=== PATIENT | female | born 1930 | race Caucasian/White ===

== ENCOUNTER 2016-06-23 08:17 | Inpatient (IN) | payer MEDICARE, OTHER ==
--- NOTE | 2016-06-23 10:19 | ER Document Report ---
ED GI Bleed / Rectal Pain - General Mode of Arrival: Medic Information source: Patient TRAVEL OUTSIDE OF THE [place] IN LAST 30 DAYS: No - HPI Patient complains to provider of: Bright red bld from rect. Onset: This morning Timing/Duration: Sudden, Better Quality of pain: No pain Rectal bleeding: Blood mixed w/ stool <KEY MOY - Last Filed: 06/23/16 11:07> <CATHY RAMAN - Last Filed: 06/23/16 11:48> - General Chief Complaint: Bloody Stools Stated Complaint: POSSIBLE GI BLEED Notes: Patient is an 85-year-old female presenting to the emergency department concerned of rectal bleeding onset this morning after her breakfast. Patient states that she was on her way to the restroom and experienced fecal incontinence, and found stool and blood in her underwear. Patient denies any pain, nausea, vomiting, or diarrhea. Patient describes the blood as bright red. Patient states that she takes one baby aspirin, but does not take any other blood thinners. (KEY MOY) - Related Data Allergies/Adverse Reactions: No Known Allergies Allergy (Verified 10/12/13 15:11) Home Medications: Current Home Medications Albuterol Sulfate [Albuterol Sulfate 2.5mg/3 mL] 1 vial IH RTTID 06/23/16 [ History] Alprazolam 0.125 mg PO QHS 06/23/16 [History] Aspirin [Aspirin EC] 81 mg PO DAILY 06/23/16 [History] Atorvastatin Calcium [Lipitor 20 mg Tablet] 20 mg PO QPM 06/23/16 [History] Cholecalciferol (Vitamin D3) [Vitamin D3 2000 unit Tablet] 2,000 unit PO DAILY 06/23/16 [History] Furosemide [Lasix] 20 mg PO DAILY 06/23/16 [History] Methotrexate Sodium [Trexall] 7.5 mg PO MO@1000 06/23/16 [History] Metoprolol Succinate [Toprol Xl] 25 mg PO DAILY 06/23/16 [History] Past Medical History - General Information source: Patient, Parent - Social History Smoking Status: Former Smoker Lives with: Family Family History: Reviewed & Not Pertinent - Past Medical History Cardiac Medical History: Reports: Hx Coronary Artery Disease, Hx Heart Attack, Hx Hypercholesterolemia Pulmonary Medical History: Reports: Hx COPD, Hx Pneumonia - A CHILD Malignancy Medical History: Reports: Hx Lung Cancer Musculoskeltal Medical History: Reports Hx Arthritis Psychiatric Medical History: Reports: Hx Anxiety Past Surgical History: Reports: Hx Hysterectomy - Immunizations Hx Diphtheria, Pertussis, Tetanus Vaccination: Yes <KEY MOY - Last Filed: 06/23/16 11:07> Review of Systems - Review of Systems Constitutional: No symptoms reported EENT: No symptoms reported Cardiovascular: No symptoms reported Respiratory: No symptoms reported Gastrointestinal: See HPI, Blood streaked bowels, Rectal bleeding, Fecal incontinence Genitourinary: No symptoms reported Female Genitourinary: No symptoms reported Musculoskeletal: No symptoms reported Skin: No symptoms reported Hematologic/Lymphatic: No symptoms reported Neurological/Psychological: No symptoms reported <NENITA MOYICA - Last Filed: 06/23/16 11:07> Physical Exam <NENITA MOYICA - Last Filed: 06/23/16 11:07> <CATHY RAMAN - Last Filed: 06/23/16 11:48> - Vital signs Vitals: Resp Pulse Ox 19 100 06/23/16 08:38 06/23/16 08:38 - Notes Notes: GENERAL: VS as per nursing doc. frail appearing female, pleasant and in no acute distress. HEAD: Atraumatic, normocephalic. EYES: Some opacification to the medial left eye, extraocular movements intact, sclera anicteric, no conjunctival injection or discharge. ENT: Nares patent, oropharynx clear without exudates, moist mucous membranes. NECK: Supple without lymphadenopathy. LUNGS: Breath sounds are decreased bilaterally. HEART: Regular rate and rhythm without murmurs. ABDOMEN: Soft, non-tender, normoactive bowel sounds. No guarding, no rebound. No masses appreciated. No [place] sign. Rectal exam shows no active bleeding on inspection. No external hemorrhoids or fissures noted. Digital exam shows no mass that there is some dark maroon blood noted on the glove. No significant tenderness noted. BACK: No CVA tenderness. Severely kyphotic EXTREMITIES: Normal range of motion,no edema. NEUROLOGICAL: Normal speech. Normal sensory and motor exams. No gross cerebellar abnormalities. PSYCH: Normal mood, normal affect. SKIN: Warm, dry, normal turgor, no lesions noted. (CATHY RAMAN) Course - Laboratory Result Diagrams: 06/23/16 08:45 06/23/16 08:45 - Consults Dr. Margaux Gill Time consulted: 11:02 Consulted provider: will see as inpatient Dr. Luz Marina Munoz Time consulted: 11:04 <KEY MOY - Last Filed: 06/23/16 11:07> - Laboratory Result Diagrams: 06/23/16 08:45 06/23/16 08:45 <CATHY RAMAN - Last Filed: 06/23/16 11:48> - Vital Signs Vital signs: Temp Pulse Resp BP Pulse Ox 98.4 F 95 23 H 109/72 100 06/23/16 09:06 06/23/16 09:06 06/23/16 11:00 06/23/16 11:00 06/23/16 11:01 - Laboratory Laboratory results interpreted by me: 06/23/16 06/23/16 06/23/16 08:45 08:45 08:45 RBC 2.82 L Hgb 9.1 L Hct 27.4 L RDW 16.5 H Seg Neutrophils % 84.7 H Lymphocytes % 5.6 L Absolute Lymphocytes 0.4 L PT 16.1 H Sodium 145.1 H Carbon Dioxide 32 H BUN 23 H Glucose 168 H - Consults Dr. Luz Marina Munoz Reason for consultation: 06/23/16 11:09 Discussed patient's case with Dr. Mcdonnell, who agrees to scope the patient if necessary. (KEY MOY) Discharge <KEY MOY - Last Filed: 06/23/16 11:07> - Discharge Admitting Provider: Hospitalist - Dr. Gill Unit Admitted: Telemetry <CATHY RAMAN - Last Filed: 06/23/16 11:48> - Discharge Clinical Impression: Lower GI bleed Condition: Fair Disposition: ADMITTED OBSERVATION Referrals: BRANDIN DU MD [Primary Care Provider] - Follow up as needed Scribe Attestation: 06/23/16 11:48 I personally performed the services described in the documentation, reviewed and edited the documentation which was dictated to the scribe in my presence, and it accurately records my words and actions. (CATHY RAMAN) Scribe Documentation - Scribe Written by Scribe:: Key Moy 06/23/2016 1016 acting as scribe for :: Baldev <KEY MOY - Last Filed: 06/23/16 11:07>
[2016-06-23 10:35] LABS: ABSOLUTE EOSINOPHILS # (AUTO) 0.1 10^3/uL (0.0-0.6); ABSOLUTE LYMPHOCYTES (AUTO) 0.4 10^3/uL (0.5-4.7); ABSOLUTE MONOCYTES (AUTO) 0.5 10^3/uL (0.1-1.4); ABSOLUTE NEUT (AUTO) 5.5 10^3/uL (1.7-8.2); BASOPHILS % (AUTO) 0.8 % (0-2); EOSINOPHILS % (AUTO) 1.3 % (0-6); HEMATOCRIT 27.4 % (36.0-47.0); HEMOGLOBIN 9.1 g/dL (12.0-15.5); HGB HCT DIFFERENCE -0.1; LYMPHOCYTES % (AUTO) 5.6 % (13-45); MEAN CORPUSCULAR HEMOGLOBIN 32.1 pg (27.0-33.4); MEAN CORPUSCULAR VOLUME 97 fl (80-97); MONOCYTES % (AUTO) 7.6 % (3-13); RED BLOOD COUNT 2.82 10^6/uL (3.72-5.28); RED CELL DISTRIBUTION WIDTH 16.5 % (11.5-14.0); SEGMENTED NEUTROPHILS % (AUTO) 84.7 % (42-78); WHITE BLOOD COUNT 6.4 10^3/uL (4.0-10.5)
[2016-06-23 10:36] LABS: PROTHROMBIN TIME 16.1 SEC (11.4-15.4)
[2016-06-23 10:37] LABS: ALANINE AMINOTRANSFERASE 34 U/L (9-52); ALBUMIN 3.8 g/dL (3.5-5.0); ALKALINE PHOSPHATASE 60 U/L (38-126); ANION GAP 14 (5-19); ASPARTATE AMINO TRANSFERASE 30 U/L (14-36); BILIRUBIN,DIRECT 0.2 mg/dL (0.0-0.4); BILIRUBIN,TOTAL 0.5 mg/dL (0.2-1.3); BLOOD UREA NITROGEN 23 mg/dL (7-20); CALCIUM 9.2 mg/dL (8.4-10.2); CARBON DIOXIDE 32 mmol/L (22-30); CHLORIDE 99 mmol/L (98-107); CREATININE RESULT 0.73 mg/dL (0.52-1.25); GLUCOSE 168 mg/dL (75-110); PARTIAL THROMBOPLASTIN TIME 32.1 SEC (23.5-35.8); POTASSIUM 4.6 mmol/L (3.6-5.0); SODIUM 145.1 mmol/L (137-145); TOTAL PROTEIN 6.4 g/dL (6.3-8.2)
[2016-06-23] MEDS ORDERED: ONDANSETRON HCL INJ/PF 4 MG/2 ML SDV IV PRN ×2 (11:22→16:58)
[2016-06-23] MEDS ORDERED: MAG HYDROX/AL HYDROX/SIMETH SUSP 30 ML UDCUP PO PRN (11:22)
[2016-06-23] MEDS ORDERED: ACETAMINOPHEN 325 MG TABLET PO PRN (11:22)
[2016-06-23] MEDS: 1/2 NORMAL SALINE 1,000 ML IV PRN ×2 (11:52→21:46)
[2016-06-23] MEDS ORDERED: SUCRALFATE 1 GM TABLET PO SCH (12:00)
--- NOTE | 2016-06-23 13:11 | PDOC H&P ---
History of Present Illness Admission Date/PCP: 06/23/16 11:48 BRANDIN DU MD Patient complains of: Bleeding per rectum History of Present Illness: SACHI GREENE is a 85 year old female who presents to [facility] emergency room this morning, after experiencing acute onset rectal bleeding after eating breakfast. Patient states she was on her way to the restroom when she experienced fecal incontinence. She found stool and bright red blood in her underwear. She's had no prior episodes of bleeding. She has had none since this time. She does admit to recent problems with constipation, requiring disimpaction. She's never had a colonoscopy, and never wants to have one. We did discuss the possibility of the need for when she she continued to have rectal bleeding. She is agreeable to this as long as systolic in the hospital setting. She states her only caregiver is her son who lives with her. She denies any nausea, vomiting, or abdominal pain. She does have a history of COPD on home oxygen. Past Medical History Cardiac Medical History: Reports: Coronary Artery Disease, Myocardial Infarction , Hyperlipidema Denies: Hypertension Pulmonary Medical History: Reports: Chronic Obstructive Pulmonary Disease (COPD) , Pneumonia - A CHILD, Other - questionable lung cancer treated with XRT, and chemotherapy Denies: Asthma, Bronchitis EENT Medical History: Reports: None Neurological Medical History: Reports: None Denies: Seizures Endocrine Medical History: Reports: None Renal/ Medical History: Reports: None Malignancy Medical History: Reports: Lung Cancer GI Medical History: Reports: None Denies: Hiatal Hernia Musculoskeltal Medical History: Reports: Arthritis Skin Medical History: Reports: None Psychiatric Medical History: Reports: None Denies: Depression Traumatic Medical History: Reports: None Hematology: Reports: None Denies: Anemia, Sickle Cell Disease Infectious Medical History: Reports: None Past Surgical History Past Surgical History: Reports: Hysterectomy Denies: Amputation, Mastectomy Social History Information Source: Patient Lives with: Family Smoking Status: Former Smoker Number of Years Smokin Last Time Smoked: 25 years ago Frequency of Alcohol Use: None Hx Recreational Drug Use: No Drugs: None Hx Prescription Drug Abuse: No - Advance Directive Surrogate healthcare decision maker:: Patient has 3 sons, her son Tony is her MPOA. She has a living will. She does not want resuscitation if she has an irreversible process that she can not recover from Family History Family History: COPD, Hypertension Parental Family History Reviewed: Yes Children Family History Reviewed: Yes Sibling(s) Family History Reviewed.: Yes Medication/Allergy Home Medications: Albuterol Sulfate [Albuterol Sulfate 2.5mg/3 mL] 1 vial IH RTTID 06/23/16 Alprazolam 0.125 mg PO QHS 06/23/16 Aspirin [Aspirin EC] 81 mg PO DAILY 06/23/16 Atorvastatin Calcium [Lipitor 20 mg Tablet] 20 mg PO QPM 06/23/16 Cholecalciferol (Vitamin D3) [Vitamin D3 2000 unit Tablet] 2,000 unit PO DAILY 06/23/16 Furosemide [Lasix] 20 mg PO DAILY 06/23/16 Methotrexate Sodium [Trexall] 7.5 mg PO MO@1000 06/23/16 Metoprolol Succinate [Toprol Xl] 25 mg PO DAILY 06/23/16 Allergies/Adverse Reactions: No Known Allergies Allergy (Verified 10/12/13 15:11) Review of Systems Constitutional: PRESENT: weight loss Eyes: ABSENT: visual disturbances Ears: ABSENT: hearing changes Cardiovascular: ABSENT: chest pain, dyspnea on exertion, edema, orthropnea, palpitations Respiratory: ABSENT: cough, hemoptysis Gastrointestinal: PRESENT: constipation - rectal bleeding x 1, other Genitourinary: ABSENT: dysuria, hematuria Musculoskeletal: ABSENT: joint swelling Integumentary: ABSENT: rash, wounds Neurological: ABSENT: abnormal gait, abnormal speech, confusion, dizziness, focal weakness, syncope Psychiatric: ABSENT: anxiety, depression, homidical ideation, suicidal ideation Endocrine: ABSENT: cold intolerance, heat intolerance, polydipsia, polyuria Hematologic/Lymphatic: ABSENT: easy bleeding, easy bruising Physical Exam Vital Signs: Temp Pulse Resp BP Pulse Ox 98.4 F 95 23 H 109/72 100 06/23/16 09:06 06/23/16 09:06 06/23/16 11:00 06/23/16 11:00 06/23/16 11:01 General appearance: PRESENT: no acute distress, thin, well-developed Head exam: PRESENT: atraumatic, normocephalic Eye exam: PRESENT: conjunctiva pink, EOMI, PERRLA. ABSENT: scleral icterus Ear exam: PRESENT: normal external ear exam Mouth exam: PRESENT: moist, tongue midline Neck exam: ABSENT: carotid bruit, JVD, lymphadenopathy, thyromegaly Respiratory exam: PRESENT: clear to auscultation jerry. ABSENT: rales, rhonchi, wheezes Cardiovascular exam: PRESENT: RRR. ABSENT: diastolic murmur, rubs, systolic murmur Pulses: PRESENT: normal dorsalis pedis pul Vascular exam: PRESENT: normal capillary refill GI/Abdominal exam: PRESENT: normal bowel sounds, soft. ABSENT: distended, guarding, mass, organolmegaly, rebound, tenderness Rectal exam: PRESENT: deferred Extremities exam: PRESENT: full ROM. ABSENT: calf tenderness, clubbing, pedal edema Neurological exam: PRESENT: alert, awake, oriented to person, oriented to place , oriented to time, oriented to situation, CN II-XII grossly intact. ABSENT: motor sensory deficit Psychiatric exam: PRESENT: appropriate affect, normal mood. ABSENT: homicidal ideation, suicidal ideation Skin exam: PRESENT: dry, intact, warm. ABSENT: cyanosis, rash Assessment & Plan - Diagnosis (1) Lower GI bleed Is this a current diagnosis for this admission?: YesPlan: Patient had one episode of tamia rectal bleeding, none since then. Rectal exam showed maroon stool. Dr De Paz spoke with surgialist in consult. He said he would scope patient if she needs to be scoped if recurrent bleed. Likely etiology of bleeding is rectal fissure from constipation, or diverticular bleed. Patient has never had a colonoscopy. She did have a cologard test by her PCP which she reports is negative (2) Anemia Qualifiers: Anemia type: unspecified type Qualified Code(s): D64.9 - Anemia, unspecified Is this a current diagnosis for this admission?: YesPlan: Patient's hemoglobin last admission 9.5mg, presently 9.1. Will monitor serial CBCs (3) COPD (chronic obstructive pulmonary disease) Qualifiers: COPD type: chronic bronchitis Is this a current diagnosis for this admission?: YesPlan: Patient wears oxygen 2l/min via nasal cannula (4) History of malignant neoplasm of lung Is this a current diagnosis for this admission?: YesPlan: Patient never had chemo and XRT for left upper lobe lesion in 2009 (5) Essential (primary) hypertension Is this a current diagnosis for this admission?: YesPlan: Patient is presently normotensive on current medication - Time Time Spent: 50 to 70 Minutes Critical Time spent with patient: 25-34 minutes Medications reviewed and adjusted accordingly: Yes Anticipated discharge: Home with Homehealth
[2016-06-23] MEDS ORDERED: GLUCAGON,HUMAN RECOMB 1 MG INJ SUBCUT PRN (13:17)
[2016-06-23] MEDS ORDERED: DEXTROSE 40% GEL 15 GM TUBE PO PRN ×2 (13:17)
[2016-06-23] MEDS ORDERED: DEXTROSE 50%-WATER 25 GM/50 ML DISP.SYRIN IV PRN ×2 (13:17)
--- NOTE | 2016-06-23 13:32 | PDOC CONSULTATION ---
Consultation Consult Date: 06/23/16 Consult reason:: GI BLEEDING History of Present Illness Admission Date/PCP: 06/23/16 11:48 BRANDIN DU MD Past Medical History Cardiac Medical History: Reports: Coronary Artery Disease, Myocardial Infarction , Hyperlipidema Denies: Hypertension Pulmonary Medical History: Reports: Chronic Obstructive Pulmonary Disease (COPD) , Pneumonia - A CHILD, Other - questionable lung cancer treated with XRT, and chemotherapy Denies: Asthma, Bronchitis EENT Medical History: Reports: None Neurological Medical History: Reports: None Denies: Seizures Endocrine Medical History: Reports: None Renal/ Medical History: Reports: None Malignancy Medical History: Reports: Lung Cancer GI Medical History: Reports: None Denies: Hiatal Hernia Musculoskeltal Medical History: Reports: Arthritis Skin Medical History: Reports: None Psychiatric Medical History: Reports: None Denies: Depression Traumatic Medical History: Reports: None Hematology: Reports: None Denies: Anemia, Sickle Cell Disease Infectious Medical History: Reports: None Past Surgical History Past Surgical History: Reports: Hysterectomy Denies: Amputation, Mastectomy Social History Lives with: Family Smoking Status: Former Smoker Number of Years Smokin Last Time Smoked: 25 years ago Frequency of Alcohol Use: None Hx Recreational Drug Use: No Drugs: None Hx Prescription Drug Abuse: No Family History Family History: COPD, Hypertension Medication/Allergy Home Medications: Albuterol Sulfate [Albuterol Sulfate 2.5mg/3 mL] 1 vial IH RTTID 06/23/16 Alprazolam 0.125 mg PO QHS 06/23/16 Aspirin [Aspirin EC] 81 mg PO DAILY 06/23/16 Atorvastatin Calcium [Lipitor 20 mg Tablet] 20 mg PO QPM 06/23/16 Cholecalciferol (Vitamin D3) [Vitamin D3 2000 unit Tablet] 2,000 unit PO DAILY 06/23/16 Furosemide [Lasix] 20 mg PO DAILY 06/23/16 Methotrexate Sodium [Trexall] 7.5 mg PO MO@1000 06/23/16 Metoprolol Succinate [Toprol Xl] 25 mg PO DAILY 06/23/16 Allergies/Adverse Reactions: No Known Allergies Allergy (Verified 10/12/13 15:11) Physical Exam Vital Signs: Temp Pulse Resp BP Pulse Ox 98.3 F 95 25 H 100/51 L 100 06/23/16 12:21 06/23/16 09:06 06/23/16 13:01 06/23/16 13:00 06/23/16 13:01 Assessment & Plan - Diagnosis (1) Lower GI bleed Is this a current diagnosis for this admission?: Yes (2) Anemia Qualifiers: Anemia type: unspecified type Qualified Code(s): D64.9 - Anemia, unspecified Is this a current diagnosis for this admission?: Yes - Plan Summary Plan Summary: pLAN UPPER ENDOSCOPY TODAY BOWEL PREP THIS EVENING AND COLONOSCOPY TOMORROW
[2016-06-23] MEDS: ALBUTEROL SULFATE 0.083% NEB 2.5 MG/3 ML AMPUL NEB SCH ×2 (13:46→20:11)
[2016-06-23] MEDS ORDERED: PHENYLEPHRINE HCL INJ/PF 10 MG/1 ML SDV ONE (15:29)
[2016-06-23] MEDS ORDERED: LIDOCAINE 2% INJ-PF (20 MG/ML) 10 ML AMPUL ONE (15:29)
[2016-06-23] MEDS ORDERED: ONDANSETRON HCL INJ/PF 4 MG/2 ML SDV ONE (15:29)
[2016-06-23] MEDS ORDERED: PROPOFOL INJ 200 MG/20 ML VIAL IV ONE (15:53)
[2016-06-23] MEDS ORDERED: DEXMEDETOMIDINE INJ 80 MCG/20 ML VIAL IV ONE (15:53)
[2016-06-23] MEDS ORDERED: EPHEDRINE SULFATE INJ 50 MG/1 ML AMPULE ONE (15:55)
[2016-06-23] MEDS ORDERED: DIPHENHYDRAMINE HCL 50 MG/ML VIAL IV PRN (16:58)
[2016-06-23] MEDS ORDERED: PROMETHAZINE HCL INJ 25 MG/1 ML VIAL IV PRN (16:58)
--- NOTE | 2016-06-23 17:23 | OPERATIVE REPORT E ---
Operative Report NAME: SACHI GREENE : 1930 AGE: 85Y DATE OF SURGERY: 06/23/2016 ROOM: ED18 PREOPERATIVE DIAGNOSIS: GI bleeding. POSTOPERATIVE DIAGNOSIS: GI bleeding with no source of upper GI bleeding visible. OPERATIVE PROCEDURE: Esophagogastroduodenoscopy. SURGEON: CASSI POMPA M.D. ANESTHESIA: Monitored anesthesia care. BLOOD LOSS: None. SPECIMENS: None. HISTORY AND INDICATIONS: As described, the patient was admitted through the emergency room with a large amount of GI bleeding, maroon-colored bleeding. Hemoglobin went down to 7.5, and she needed to have both an upper and lower endoscopy for evaluation. DESCRIPTION OF PROCEDURE: The patient was placed in the left lateral position, under monitored anesthesia care, EGD scope was passed through oropharynx and advanced to the level of the third and fourth part of the duodenum. The entire esophagus, stomach, and duodenum examined. FINDINGS: She has a large hiatal hernia. Esophagus otherwise normal. In the stomach, most of the stomach appeared normal except for a large hiatal hernia on retroflexion was seen, but no stomach ulcerations and no gastritis was seen. Duodenum also completely normal. Overall, upper endoscopy revealed no GI bleeding source. PLAN: clear-liquid diet tonight. Will give her bowel prep tonight. Will do a colonoscopy tomorrow. DICTATING PHYSICIAN: CASSI POMPA M.D. [id number] PHY#: [id number] ID: [id number] JOB#: [id number] ACCT: [id number] cc:CASSI POMPA M.D. > [facility]
[2016-06-23] MEDS ORDERED: PEG 3350/NA SULF,BICARB,CL/KCL 4000 ML PO ONE (18:00)
[2016-06-23 19:22] LABS: ABSOLUTE BASOPHILS # (AUTO) 0.1 10^3/uL (0.0-0.2); ABSOLUTE EOSINOPHILS # (AUTO) 0.1 10^3/uL (0.0-0.6); ABSOLUTE LYMPHOCYTES (AUTO) 0.7 10^3/uL (0.5-4.7); ABSOLUTE MONOCYTES (AUTO) 0.6 10^3/uL (0.1-1.4); ABSOLUTE NEUT (AUTO) 4.4 10^3/uL (1.7-8.2); HEMATOCRIT 26.5 % (36.0-47.0); HEMOGLOBIN 8.7 g/dL (12.0-15.5); HGB HCT DIFFERENCE -0.4; LYMPHOCYTES % (AUTO) 11.7 % (13-45); MEAN CORPUSCULAR HEMOGLOBIN 31.6 pg (27.0-33.4); MEAN CORPUSCULAR VOLUME 96 fl (80-97); MONOCYTES % (AUTO) 9.7 % (3-13); RED BLOOD COUNT 2.76 10^6/uL (3.72-5.28); RED CELL DISTRIBUTION WIDTH 16.4 % (11.5-14.0); SEGMENTED NEUTROPHILS % (AUTO) 75.6 % (42-78); WHITE BLOOD COUNT 5.8 10^3/uL (4.0-10.5)
[2016-06-23] MEDS: ATORVASTATIN CALCIUM 20 MG TABLET PO SCH (20:42)
[2016-06-23] MEDS: SUCRALFATE SUSP 1 GM/10 ML UDCUP PO SCH (20:42)
[2016-06-23] MEDS: ALPRAZOLAM 0.25 MG TABLET PO SCH (21:41)
[2016-06-23] MEDS: PANTOPRAZOLE SODIUM 40 MG VIAL IV SCH (21:46)
[2016-06-24 03:22] LABS: ABSOLUTE EOSINOPHILS # (AUTO) 0.1 10^3/uL (0.0-0.6); ABSOLUTE LYMPHOCYTES (AUTO) 0.4 10^3/uL (0.5-4.7); ABSOLUTE MONOCYTES (AUTO) 0.5 10^3/uL (0.1-1.4); ABSOLUTE NEUT (AUTO) 4.1 10^3/uL (1.7-8.2); EOSINOPHILS % (AUTO) 1.3 % (0-6); HEMATOCRIT 24.4 % (36.0-47.0); HEMOGLOBIN 8.1 g/dL (12.0-15.5); HGB HCT DIFFERENCE -0.1; LYMPHOCYTES % (AUTO) 7.3 % (13-45); MEAN CORPUSCULAR HEMOGLOBIN 31.8 pg (27.0-33.4); MEAN CORPUSCULAR HGB CONC 33.2 g/dL (32.0-36.0); MEAN CORPUSCULAR VOLUME 96 fl (80-97); MONOCYTES % (AUTO) 9.4 % (3-13); RED BLOOD COUNT 2.55 10^6/uL (3.72-5.28); RED CELL DISTRIBUTION WIDTH 16.3 % (11.5-14.0)
[2016-06-24 03:30] LABS: ALANINE AMINOTRANSFERASE 32 U/L (9-52); ALBUMIN 3.4 g/dL (3.5-5.0); ALKALINE PHOSPHATASE 64 U/L (38-126); ANION GAP 12 (5-19); ASPARTATE AMINO TRANSFERASE 27 U/L (14-36); BILIRUBIN,DIRECT 0.2 mg/dL (0.0-0.4); BILIRUBIN,TOTAL 0.6 mg/dL (0.2-1.3); BLOOD UREA NITROGEN 19 mg/dL (7-20); CALCIUM 8.6 mg/dL (8.4-10.2); CARBON DIOXIDE 30 mmol/L (22-30); CHLORIDE 100 mmol/L (98-107); CREATININE RESULT 0.69 mg/dL (0.52-1.25); GLUCOSE 111 mg/dL (75-110); POTASSIUM 4.2 mmol/L (3.6-5.0); SODIUM 142.2 mmol/L (137-145); TOTAL PROTEIN 5.7 g/dL (6.3-8.2)
[2016-06-24] MEDS: ALBUTEROL SULFATE 0.083% NEB 2.5 MG/3 ML AMPUL NEB SCH ×3 (07:56→19:33)
[2016-06-24] MEDS ORDERED: PROPOFOL INJ 200 MG/20 ML VIAL IV ONE (10:28)
[2016-06-24] MEDS ORDERED: MIDAZOLAM 2 MG/2 ML INJ ONE (10:28)
[2016-06-24] MEDS ORDERED: LIDOCAINE 2% INJ-PF (20 MG/ML) 10 ML AMPUL ONE (10:28)
[2016-06-24] MEDS ORDERED: DEXMEDETOMIDINE INJ 80 MCG/20 ML VIAL IV ONE (10:28)
[2016-06-24] MEDS: METOPROLOL SUCCINATE 25 MG TAB.SR.24H PO SCH ×2 (11:34→15:14)
[2016-06-24] MEDS: PANTOPRAZOLE SODIUM 40 MG VIAL IV SCH ×2 (11:34→21:30)
[2016-06-24] MEDS: SUCRALFATE SUSP 1 GM/10 ML UDCUP PO SCH ×2 (11:34→17:26)
[2016-06-24] MEDS ORDERED: ONDANSETRON HCL INJ/PF 4 MG/2 ML SDV IV PRN (11:55)
[2016-06-24] MEDS ORDERED: FLUMAZENIL INJ 0.5 MG/5 ML VIAL IV ONE (13:44)
--- NOTE | 2016-06-24 14:05 | PDOC PROGRESS REPORT ---
Subjective Progress Note for:: 06/24/16 Physical Exam Vital Signs: Temp Pulse Resp BP Pulse Ox 97.4 F 89 16 88/37 L 100 06/24/16 13:10 06/24/16 13:10 06/24/16 13:10 06/24/16 13:10 06/24/16 13:10 Intake & Output 06/23/16 06/24/16 06/25/16 06:59 06:59 06:59 Intake Total 1909 1360 Balance 1909 1360 Weight 42.8 kg Results Laboratory Results: 06/24/16 03:11 06/24/16 03:11 06/23/16 06/24/16 06/24/16 19:10 03:11 03:11 WBC 5.8 5.0 RBC 2.76 L 2.55 L Hgb 8.7 L 8.1 L Hct 26.5 L 24.4 L MCV 96 96 MCH 31.6 31.8 MCHC 33.0 33.2 RDW 16.4 H 16.3 H Plt Count 156 109 L Seg Neutrophils % 75.6 81.0 H Lymphocytes % 11.7 L 7.3 L Monocytes % 9.7 9.4 Eosinophils % 2.0 1.3 Basophils % 1.0 1.0 Absolute Neutrophils 4.4 4.1 Absolute Lymphocytes 0.7 0.4 L Absolute Monocytes 0.6 0.5 Absolute Eosinophils 0.1 0.1 Absolute Basophils 0.1 0.0 Sodium 142.2 Potassium 4.2 Chloride 100 Carbon Dioxide 30 Anion Gap 12 BUN 19 Creatinine 0.69 Est GFR ( Amer) > 60 Est GFR (Non-Af Amer) > 60 Glucose 111 H Calcium 8.6 Total Bilirubin 0.6 AST 27 ALT 32 Alkaline Phosphatase 64 Total Protein 5.7 L Albumin 3.4 L Assessment & Plan - Diagnosis (1) Lower GI bleed Is this a current diagnosis for this admission?: Yes (2) Anemia Qualifiers: Anemia type: unspecified type Qualified Code(s): D64.9 - Anemia, unspecified Is this a current diagnosis for this admission?: Yes - Plan Summary Plan Summary: EGD - Large hiatal hernia - conservative management Colonoscopy Mild Ischemic colitis , no active bleeding Diet asd tolerated, hydration Conservative management , no surgery at this time Advance diet as tolerated May DC home tomorrow Follow-up with surgery PRN
[2016-06-24 15:21] LABS: ABSOLUTE EOSINOPHILS # (AUTO) 0.1 10^3/uL (0.0-0.6); ABSOLUTE LYMPHOCYTES (AUTO) 0.6 10^3/uL (0.5-4.7); ABSOLUTE MONOCYTES (AUTO) 0.6 10^3/uL (0.1-1.4); BASOPHILS % (AUTO) 0.6 % (0-2); EOSINOPHILS % (AUTO) 0.7 % (0-6); HEMATOCRIT 26.5 % (36.0-47.0); HEMOGLOBIN 8.8 g/dL (12.0-15.5); HGB HCT DIFFERENCE -0.1; LYMPHOCYTES % (AUTO) 8.1 % (13-45); MEAN CORPUSCULAR HEMOGLOBIN 31.7 pg (27.0-33.4); MEAN CORPUSCULAR VOLUME 96 fl (80-97); MONOCYTES % (AUTO) 8.1 % (3-13); RED BLOOD COUNT 2.76 10^6/uL (3.72-5.28); RED CELL DISTRIBUTION WIDTH 16.9 % (11.5-14.0); SEGMENTED NEUTROPHILS % (AUTO) 82.5 % (42-78); WHITE BLOOD COUNT 7.3 10^3/uL (4.0-10.5)
--- NOTE | 2016-06-24 16:57 | EKG REPORT ---
SEVERITY:- OTHERWISE NORMAL ECG - SINUS RHYTHM BORDERLINE LEFT AXIS DEVIATION : Confirmed by: Carolyn Fofana MD 24-Jun-2016 16:56:54
[2016-06-24] MEDS: ATORVASTATIN CALCIUM 20 MG TABLET PO SCH (17:26)
[2016-06-24] MEDS: METRONIDAZOLE 500 MG/NS RTU 100 ML IV SCH (17:28)
[2016-06-24] MEDS: ALPRAZOLAM 0.25 MG TABLET PO SCH (21:30)
[2016-06-24] MEDS: 1/2 NORMAL SALINE 1,000 ML IV PRN (21:36)
[2016-06-25] MEDS ORDERED: IPRATROPIUM/ALBUTEROL 0.5-2.5 MG/3 ML AMPUL NEB PRN (00:53)
[2016-06-25] MEDS: METRONIDAZOLE 500 MG/NS RTU 100 ML IV SCH ×2 (02:19→09:24)
[2016-06-25] MEDS: ALBUTEROL SULFATE 0.083% NEB 2.5 MG/3 ML AMPUL NEB SCH (07:56)
[2016-06-25] MEDS: PANTOPRAZOLE SODIUM 40 MG VIAL IV SCH (09:24)
[2016-06-25] MEDS: SUCRALFATE SUSP 1 GM/10 ML UDCUP PO SCH (09:25)
[2016-06-25] MEDS: METOPROLOL SUCCINATE 25 MG TAB.SR.24H PO SCH (09:26)
[2016-06-25] MEDS ORDERED: ALPRAZOLAM 0.25 MG TABLET PO ONE (10:30)
[2016-06-25 12:23] VITALS: BP 121/58
--- NOTE | 2016-06-25 13:52 | OPERATIVE REPORT E ---
Operative Report NAME: SACHI GREENE : 1930 AGE: 85Y DATE OF SURGERY: 06/24/2016 ROOM: 530 PREOPERATIVE DIAGNOSIS: Gastrointestinal bleeding, most likely lower GI bleeding. POSTOPERATIVE DIAGNOSES: She has ischemic colitis, and in the junction between the proximal descending colon and upper sigmoid colon, there is a stricture, not passable. It could be an extensive stricture, possible , but could not negotiate that and time. OPERATIVE PROCEDURE: Colonoscopy of the left colon, up to the descending colon, incomplete because of possible stricture and extensive amount of adhesions and fear of perforation because of ischemic colitis, had to do an incomplete colonoscopy, but no active bleeding. SURGEON: CASSI POMPA M.D. ANESTHESIA: Monitored anesthesia care. BLOOD LOSS: None. SPECIMENS: None. HISTORY AND INDICATIONS: The patient was admitted through the emergency room with GI bleeding. Upper GI endoscopy was negative and now we need to do a colonoscopy. DESCRIPTION OF PROCEDURE: The patient was placed in the left lateral position. Digital rectal examination: No palpable masses. Then a colonoscope was introduced through the anal canal, advanced slowly and then the scope was up to 67 cm, more than likely it was in the proximal ascending colon. At that level, there was an impassible stricture, acute bend, and I could not pass the scope safely through that acutely bent colonic area, but there was no malignant lesions. No polyps. Most of the sigmoid colon and distal ascending colon appeared to be having signs of ischemic colitis with punctate hemorrhages, slight discoloration, but no evidence of any gangrene or anything like that. Then colonoscope withdrawn and the colon was decompressed at the same time. The patient recovered without any problems. He was taken to the recovery room in good condition. The rest of the management: I will put her on Flagyl for possible ischemic colitis and treat her conservatively as much as possible. The patient is a very frail patient, an 85-year-old, a surgical option is not a good option. She will not tolerate any, so I will transfusions and nutrition optimization as much as possible with conservative management. DICTATING PHYSICIAN: CASSI PMOPA M.D. [id number] PHY#: [id number] ID: [id number] JOB#: [id number] ACCT: [id number] cc:CASSI POMPA M.D. >
--- NOTE | 2016-06-25 17:11 | PDOC DISCHARGE SUMMARY ---
General - Admit/Disc Date/PCP Admission Date/Primary Care Provider: 06/24/16 11:33 BRANDIN DU MD Discharge Date: 06/25/16 - Discharge Diagnosis (1) Lower GI bleed Is this a current diagnosis for this admission?: YesSummary: Patient underwent EGD and colonoscopy. EGD was unremarkable. Colonoscopy showed small area of ischemic colitis with no active bleeding. Patient was started on Flagyl. Had no further rectal bleeding or diarrhea, one normal stool (2) Anemia Is this a current diagnosis for this admission?: YesSummary: She did not require transfusion hemoglobin was stable (3) COPD (chronic obstructive pulmonary disease) Is this a current diagnosis for this admission?: YesSummary: Continue inhalers (4) History of malignant neoplasm of lung Is this a current diagnosis for this admission?: Yes (5) Essential (primary) hypertension Is this a current diagnosis for this admission?: YesSummary: Continue current medications she is normotensive. - Additional Information Resuscitation Status: Do Not Resuscitate Discharge Diet: Regular Discharge Activity: Activity As Tolerated, Balance Activity w/Rest Home Medications: Albuterol Sulfate [Albuterol Sulfate 2.5mg/3 mL] 1 vial IH RTTID 06/23/16 Alprazolam 0.125 mg PO QHS 06/23/16 Aspirin [Aspirin EC] 81 mg PO DAILY 06/23/16 Atorvastatin Calcium [Lipitor 20 mg Tablet] 20 mg PO QPM 06/23/16 Cholecalciferol (Vitamin D3) [Vitamin D3 2000 unit Tablet] 2,000 unit PO DAILY 06/23/16 Furosemide [Lasix] 20 mg PO DAILY 06/23/16 Methotrexate Sodium [Trexall] 7.5 mg PO MO@1000 06/23/16 Metoprolol Succinate [Toprol Xl] 25 mg PO DAILY 06/23/16 Metronidazole [Flagyl 500 mg Tablet] 500 mg PO TID #21 tablet 06/25/16 History of Present Illness Patient complains of: Rectal bleeding History of Present Illness: SACHI GREENE is a 85 year old female who presents to [facility]'s emergency room this morning, after experiencing acute onset rectal bleeding after eating breakfast. Patient states she was on her way to the restroom when she experienced fecal incontinence. She found stool and bright red blood in her underwear. She's had no prior episodes of bleeding. She has had none since this time. She does admit to recent problems with constipation, requiring disimpaction. She's never had a colonoscopy, and never wants to have one. We did discuss the possibility of the need for when she she continued to have rectal bleeding. She is agreeable to this as long as systolic in the hospital setting. She states her only caregiver is her son who lives with her. She denies any nausea, vomiting, or abdominal pain. She does have a history of COPD on home oxygen. Hospital Course Hospital Course: She is in his hospital service on telemetry.Gen. surgery was consulted for EGD and colonoscopy. Dr. Ramirez, saw the patient in consult. He took her from EGD from the emergency room. There is no finding of gastritis or esophagitis no ulcers. She was admitted to telemetry floor for rectal bleeding. She underwent GoLYTELY prep for colonoscopy the following day. Hemoglobin did drop from 9.1-8.1. With prep. She had a colonoscopy which showed a small area of ischemic colitis. She was started on IV Flagyl. She had no active bleeding. She had 1 small bowel movement overnight with no bleeding. She was able tolerate a regular diet. Today she is cleared for discharge Physical Exam Vital Signs: Temp Pulse Resp BP Pulse Ox 97.5 F 94 21 H 121/58 L 100 06/25/16 12:20 06/25/16 12:20 06/25/16 12:20 06/25/16 12:20 06/25/16 12:20 Intake & Output 06/24/16 06/25/16 06/26/16 06:59 06:59 06:59 Intake Total 4037 Balance 4037 Weight 42.7 kg General appearance: PRESENT: no acute distress, thin, well-developed Head exam: PRESENT: atraumatic, normocephalic Eye exam: PRESENT: conjunctival injection Ear exam: PRESENT: normal external ear exam Mouth exam: PRESENT: dry mucosa Neck exam: ABSENT: carotid bruit, JVD, lymphadenopathy, thyromegaly Respiratory exam: PRESENT: decreased breath sounds, symmetrical, unlabored Cardiovascular exam: PRESENT: RRR. ABSENT: diastolic murmur, rubs, systolic murmur Pulses: PRESENT: normal dorsalis pedis pul Vascular exam: PRESENT: normal capillary refill GI/Abdominal exam: PRESENT: normal bowel sounds, soft. ABSENT: distended, guarding, mass, organolmegaly, rebound, tenderness Rectal exam: PRESENT: deferred Extremities exam: PRESENT: full ROM. ABSENT: calf tenderness, clubbing, pedal edema Neurological exam: PRESENT: alert, awake, oriented to person, oriented to place , oriented to time, oriented to situation, CN II-XII grossly intact. ABSENT: motor sensory deficit Psychiatric exam: PRESENT: appropriate affect, normal mood. ABSENT: homicidal ideation, suicidal ideation Skin exam: PRESENT: dry, intact, warm. ABSENT: cyanosis, rash Results Laboratory Results: 06/24/16 15:17 Qualifiers PATEINT BEING DISCHARGED WITH ANY OF THE FOLLOWING DIAGNOSIS?: No Plan Discharge Plan: Home with family Time Spent: Less than 30 Minutes
== END 2016-06-25 13:18 | disposition home or self-care (01) | DRG 378 ==
LOC: ER 08:17 → EH 11:22 → UNDOADMOB 11:48 → 5 18:16 → OBSVTOIN 06-24 11:33
PROVIDERS: ADMIT Family Medicine; ATTEND Family Medicine
PROC: 0DJ08ZZ Inspection of Upper Intestinal Tract, Via Natural or Artificial Opening Endoscopic (ICD-10-PCS; principal; 2016-06-23 15:00)
PROC: 0DJD8ZZ Inspection of Lower Intestinal Tract, Via Natural or Artificial Opening Endoscopic (ICD-10-PCS; 2016-06-24)
DX: K92.2 Gastrointestinal hemorrhage, unspecified (principal); K55.9 Vascular disorder of intestine, unspecified; C34.90 Malignant neoplasm of unspecified part of unspecified bronchus or lung; D64.9 Anemia, unspecified; K44.9 Diaphragmatic hernia without obstruction or gangrene; I10 Essential (primary) hypertension; I25.10 Atherosclerotic heart disease of native coronary artery without angina pectoris; E78.5 Hyperlipidemia, unspecified; J44.9 Chronic obstructive pulmonary disease, unspecified; I25.2 Old myocardial infarction; Z99.81 Dependence on supplemental oxygen; Z79.82 Long term (current) use of aspirin; Z79.899 Other long term (current) drug therapy; Z79.51 Long term (current) use of inhaled steroids; Z87.891 Personal history of nicotine dependence
CPT/HCPCS: 36415; 43235; 45378; 740; 80053; 810; 85025; 85610; 85730; 86850; 86900; 86901; 93005; 93010; 94640; 99285; G0378; J2250; J2370; J2405; J2704; J3490; S0164

== ENCOUNTER 2016-07-26 02:29 | Observation (INO) | payer MEDICARE, OTHER ==
[2016-07-26] MEDS ORDERED: NORMAL SALINE 1000 ML 1,000 ML IV ONE (05:13)
--- NOTE | 2016-07-26 06:33 | ER Document Report ---
ED General - General Chief Complaint: Head Injury Stated Complaint: FALL/RIGHT SIDE INJURY Time Seen by Provider: 07/26/16 04:51 Mode of Arrival: Medic Information source: Patient, Emergency Med Personnel TRAVEL OUTSIDE OF THE [place] IN LAST 30 DAYS: No - HPI Notes: See computer downtime charting. - Related Data Allergies/Adverse Reactions: No Known Allergies Allergy (Verified 10/12/13 15:11) Home Medications: Current Home Medications Furosemide [Lasix 20 mg Tablet] 20 mg PO DAILY 07/26/16 [History] Methotrexate Sodium [Methotrexate] 2.5 mg PO OVIEDO@1000 07/26/16 [History] Metoprolol Succinate [Toprol Xl 50 mg Tab.sr] 50 mg PO DAILY 07/26/16 [History] Prednisolone Acetate [Inflamase 1% Oph Susp 5 ml] 1 drop OS DAILY 07/26/16 [ History] Past Medical History - Social History Smoking Status: Never Smoker Frequency of alcohol use: None Drug Abuse: None Lives with: Alone Family History: Reviewed & Not Pertinent, COPD, Hypertension Patient has suicidal ideation: No - Past Medical History Cardiac Medical History: Reports: Hx Coronary Artery Disease, Hx Heart Attack, Hx Hypercholesterolemia Denies: Hx Hypertension Pulmonary Medical History: Reports: Hx COPD, Hx Pneumonia - A CHILD Denies: Hx Asthma, Hx Bronchitis Neurological Medical History: Denies: Hx Seizures Renal/ Medical History: Denies: Hx Peritoneal Dialysis Malignancy Medical History: Reports: Hx Lung Cancer GI Medical History: Denies: Hx Hiatal Hernia, Hx Ulcer Musculoskeltal Medical History: Reports Hx Arthritis Psychiatric Medical History: Reports: Hx Anxiety Denies: Hx Depression Past Surgical History: Reports: Hx Hysterectomy. Denies: Hx Mastectomy, Hx Open Heart Surgery - Immunizations Hx Diphtheria, Pertussis, Tetanus Vaccination: Yes Physical Exam - Vital signs Vitals: Temp Pulse Resp BP Pulse Ox 97.8 F 106 H 18 116/68 95 07/26/16 02:37 07/26/16 02:37 07/26/16 02:37 07/26/16 02:37 07/26/16 02:37 Course - Re-evaluation Re-evalutation: 08/03/16 05:52 see computer downtime chart. - Vital Signs Vital signs: Temp Pulse Resp BP Pulse Ox 97.2 F 113 H 16 122/84 98 07/31/16 15:46 07/31/16 15:46 07/31/16 15:46 07/31/16 15:46 07/31/16 15:46 - Laboratory Result Diagrams: 07/27/16 06:50 07/27/16 06:50 Laboratory results interpreted by me: 07/26/16 07/26/16 07/26/16 06:10 06:10 06:10 WBC 14.3 H RBC 3.59 L Hgb 11.1 L Hct 35.4 L MCV 99 H MCHC 31.4 L RDW 18.4 H Seg Neuts % (Manual) 90 H Lymphocytes % (Manual) 1 L Abs Neuts (Manual) 13.4 H Abs Lymphs (Manual) 0.1 L PT 18.4 H Chloride 95 L Carbon Dioxide 36 H BUN 27 H Glucose 122 H Iron TIBC Direct Bilirubin 0.5 H AST 46 H ALT 58 H Alkaline Phosphatase 196 H NT-Pro-B Natriuret Pep Total Protein 6.1 L Albumin 3.4 L 07/26/16 07/26/16 06:10 06:10 WBC RBC Hgb Hct MCV MCHC RDW Seg Neuts % (Manual) Lymphocytes % (Manual) Abs Neuts (Manual) Abs Lymphs (Manual) PT Chloride Carbon Dioxide BUN Glucose Iron 35.8 L TIBC 216 L Direct Bilirubin AST ALT Alkaline Phosphatase NT-Pro-B Natriuret Pep 1690 H Total Protein Albumin Discharge - Discharge Clinical Impression: Weight loss, Syncope, near Accidental fall Qualifiers: Encounter type: initial encounter Qualified Code(s): W19.XXXA - Unspecified fall, initial encounter Head injury Qualifiers: Encounter type: initial encounter Qualified Code(s): S09.90XA - Unspecified injury of head, initial encounter Metastatic lung carcinoma Qualifiers: Laterality: unspecified laterality Qualified Code(s): C78.00 - Secondary malignant neoplasm of unspecified lung Condition: Serious Disposition: ADMITTED INPATIENT
--- NOTE | 2016-07-26 06:36 | RADIOLOGY REPORT (SQ) ---
EXAM DESCRIPTION: CHEST SINGLE VIEW COMPLETED DATE/TIME: 07/26/2016 6:10 am REASON FOR STUDY: dyspnea COMPARISON: 09/18/2015. CT, 09/19/2015. EXAM PARAMETERS: NUMBER OF VIEWS: One view. TECHNIQUE: Single frontal radiographic view of the chest acquired. RADIATION DOSE: NA LIMITATIONS: None. FINDINGS: LUNGS AND PLEURA: Air opacification of the left lower hemithorax, left mid hemithorax, lef t lateral upper hemithorax, and right hilum. Small left lung volume. Extensive deformity of the lef t bony hemithorax, deformity of the left mid -distal clavicle clavicular shaft, and moderate mixed sc lerosis and lucency of the left glenoid. MEDIASTINUM AND HILAR STRUCTURES: No masses. Contour normal. HEART AND VASCULAR STRUCTURES: Heart normal in size. Normal vasculature. BONES: No acute findings. HARDWARE: At adequate appearing right mini port central line. OTHER: No other significant finding. IMPRESSION: No acute cardiopulmonary findings. Chronic abnormalities of the left hemithorax and rig ht hilum consistent with prior history of malignancy. TECHNICAL DOCUMENTATION: JOB ID: [id number]
[2016-07-26 07:00] LABS: PROTHROMBIN TIME 18.4 SEC (11.4-15.4)
[2016-07-26 07:09] LABS: PARTIAL THROMBOPLASTIN TIME 31.4 SEC (23.5-35.8)
--- NOTE | 2016-07-26 07:13 | ER Document Report ---
ED General - General Chief Complaint: Head Injury Stated Complaint: FALL/RIGHT SIDE INJURY Time Seen by Provider: 07/26/16 04:51 Mode of Arrival: Medic Information source: Patient Notes: 86-year-old female with history of malignancy lung CA presents with complaints of weakness shortness of breath. Patient notes she had fallen and struck her head. Son notes failure to thrive at home weight loss multiple falls TRAVEL OUTSIDE OF THE [place] IN LAST 30 DAYS: No - HPI Onset: Other - 2-3 month duration Onset/Duration: Persistent Quality of pain: No pain Severity: Moderate Pain Level: Denies Associated symptoms: Shortness of breath, Weakness Exacerbated by: Denies Relieved by: Denies Similar symptoms previously: Yes Recently seen / treated by doctor: Yes - Related Data Allergies/Adverse Reactions: No Known Allergies Allergy (Verified 10/12/13 15:11) Home Medications: Current Home Medications Alprazolam [Xanax 0.25 mg Tablet] 0.25 mg PO DAILYP PRN 07/26/16 [History] Furosemide [Lasix 20 mg Tablet] 20 mg PO DAILY 07/26/16 [History] Methotrexate Sodium [Methotrexate] 2.5 mg PO OVIEDO@1000 07/26/16 [History] Metoprolol Succinate [Toprol Xl 50 mg Tab.sr] 50 mg PO DAILY 07/26/16 [History] Prednisolone Acetate [Inflamase 1% Oph Susp 5 ml] 1 drop OS DAILY 07/26/16 [ History] Past Medical History - General Information source: Patient, Emergency Med Personnel - Social History Smoking Status: Never Smoker Cigarette use (# per day): No Chew tobacco use (# tins/day): No Smoking Education Provided: No Family History: COPD, Hypertension Patient has suicidal ideation: No - Past Medical History Cardiac Medical History: Reports: Hx Coronary Artery Disease, Hx Heart Attack, Hx Hypercholesterolemia Denies: Hx Hypertension Pulmonary Medical History: Reports: Hx COPD, Hx Pneumonia - A CHILD Denies: Hx Asthma, Hx Bronchitis Neurological Medical History: Denies: Hx Seizures Renal/ Medical History: Denies: Hx Peritoneal Dialysis Malignancy Medical History: Reports: Hx Lung Cancer GI Medical History: Denies: Hx Hiatal Hernia, Hx Ulcer Musculoskeltal Medical History: Reports Hx Arthritis Psychiatric Medical History: Reports: Hx Anxiety Denies: Hx Depression Past Surgical History: Reports: Hx Hysterectomy. Denies: Hx Mastectomy, Hx Open Heart Surgery - Immunizations Hx Diphtheria, Pertussis, Tetanus Vaccination: Yes Review of Systems - Review of Systems Notes: PHYSICAL EXAMINATION: GENERAL: Thin frail cachectic appearing HEAD: Atraumatic, normocephalic. EYES: Pupils equal round and reactive to light, extraocular movements intact, conjunctiva are normal. ENT: Nares patent, oropharynx clear without exudates. Moist mucous membranes. NECK: Normal range of motion, supple without lymphadenopathy LUNGS: Breath sounds clear to auscultation bilaterally and equal. Breathing 40 times a minute HEART: Regular rate and rhythm without murmurs ABDOMEN: Soft, nontender, nondistended abdomen. No guarding, no rebound. No masses appreciated. Female : deferred Musculoskeletal: Normal range of motion, no pitting or edema. No cyanosis. NEUROLOGICAL: Cranial nerves grossly intact. Normal speech, normal gait. Normal sensory, motor exams PSYCH: Normal mood, normal affect. SKIN: Warm, Dry, normal turgor, no rashes or lesions noted. Physical Exam - Vital signs Vitals: Temp Pulse Resp BP Pulse Ox 97.8 F 106 H 18 116/68 95 07/26/16 02:37 07/26/16 02:37 07/26/16 02:37 07/26/16 02:37 07/26/16 02:37 Course - Re-evaluation Re-evalutation: 07/26/16 07:14 Lab work imaging is pending at this time, I expect admission for this patient 07/26/16 08:[address] Tan will defer on admission at this time until CTA is performed 07/26/16 10:47 CT a is consistent with multiple metastatic infiltrates. Patient will be admitted to the hospitalist service - Vital Signs Vital signs: Temp Pulse Resp BP Pulse Ox 97.8 F 106 H 45 H 149/131 H 100 07/26/16 02:37 07/26/16 02:37 07/26/16 07:49 07/26/16 07:51 07/26/16 07:57 - Laboratory Result Diagrams: 07/26/16 06:10 07/26/16 06:10 Laboratory results interpreted by me: 07/26/16 07/26/16 07/26/16 06:10 06:10 06:10 WBC 14.3 H RBC 3.59 L Hgb 11.1 L Hct 35.4 L MCV 99 H MCHC 31.4 L RDW 18.4 H Seg Neuts % (Manual) 90 H Lymphocytes % (Manual) 1 L Abs Neuts (Manual) 13.4 H Abs Lymphs (Manual) 0.1 L PT 18.4 H Chloride 95 L Carbon Dioxide 36 H BUN 27 H Glucose 122 H Iron TIBC Direct Bilirubin 0.5 H AST 46 H ALT 58 H Alkaline Phosphatase 196 H NT-Pro-B Natriuret Pep Total Protein 6.1 L Albumin 3.4 L 07/26/16 07/26/16 06:10 06:10 WBC RBC Hgb Hct MCV MCHC RDW Seg Neuts % (Manual) Lymphocytes % (Manual) Abs Neuts (Manual) Abs Lymphs (Manual) PT Chloride Carbon Dioxide BUN Glucose Iron 35.8 L TIBC 216 L Direct Bilirubin AST ALT Alkaline Phosphatase NT-Pro-B Natriuret Pep 1690 H Total Protein Albumin - Diagnostic Test Radiology reviewed: Image reviewed, Reports reviewed - Report given to patient Discharge - Discharge Clinical Impression: Weight loss, Syncope, near Accidental fall Qualifiers: Encounter type: initial encounter Qualified Code(s): W19.XXXA - Unspecified fall, initial encounter Head injury Qualifiers: Encounter type: initial encounter Qualified Code(s): S09.90XA - Unspecified injury of head, initial encounter Secondary carcinoma of lung Qualifiers: Laterality: unspecified laterality Qualified Code(s): C78.00 - Secondary malignant neoplasm of unspecified lung Condition: Serious Disposition: ADMITTED INPATIENT Admitting Provider: Hospitalist Unit Admitted: IMCU Referrals: SEFERINO FOX MD [Primary Care Provider] - Follow up as needed
[2016-07-26 07:18] LABS: HEMATOCRIT 35.4 % (36.0-47.0); HEMOGLOBIN 11.1 g/dL (12.0-15.5); HGB HCT DIFFERENCE -2.1; MEAN CORPUSCULAR HEMOGLOBIN 31.1 pg (27.0-33.4); MEAN CORPUSCULAR HGB CONC 31.4 g/dL (32.0-36.0); MEAN CORPUSCULAR VOLUME 99 fl (80-97); RED BLOOD COUNT 3.59 10^6/uL (3.72-5.28); RED CELL DISTRIBUTION WIDTH 18.4 % (11.5-14.0); WHITE BLOOD COUNT 14.3 10^3/uL (4.0-10.5)
[2016-07-26 07:19] LABS: ALANINE AMINOTRANSFERASE 58 U/L (9-52); ALBUMIN 3.4 g/dL (3.5-5.0); ALKALINE PHOSPHATASE 196 U/L (38-126); ANION GAP 13 (5-19); ASPARTATE AMINO TRANSFERASE 46 U/L (14-36); BILIRUBIN,DIRECT 0.5 mg/dL (0.0-0.4); BILIRUBIN,TOTAL 0.8 mg/dL (0.2-1.3); BLOOD UREA NITROGEN 27 mg/dL (7-20); CARBON DIOXIDE 36 mmol/L (22-30); CHLORIDE 95 mmol/L (98-107); CREATININE RESULT 0.75 mg/dL (0.52-1.25); GLUCOSE 122 mg/dL (75-110); MAGNESIUM 2.2 mg/dL (1.6-2.3); POTASSIUM 3.8 mmol/L (3.6-5.0); SODIUM 143.5 mmol/L (137-145); TOTAL PROTEIN 6.1 g/dL (6.3-8.2)
--- NOTE | 2016-07-26 07:19 | RADIOLOGY REPORT (SQ) ---
EXAM DESCRIPTION: CT HEAD WITHOUT COMPLETED DATE/TIME: 07/26/2016 7:01 am REASON FOR STUDY: head injury COMPARISON: None. TECHNIQUE: Axial images acquired through the brain without intravenous contrast. Images reviewed wi th bone, brain and subdural windows. Images stored on PACS. All CT scanners at this facility use dose modulation, iterative reconstruction, and/or weight based d osing when appropriate to reduce radiation dose to as low as reasonably achievable (ALARA). [facility]: Dose Right [facility]: CareDose [facility]: Dose Right [facility]: Teradose 4D [facility]: PageLever RADIATION DOSE: 55.22 mGy. LIMITATIONS: None. FINDINGS: VENTRICLES: Normal size and contour. CEREBRUM: Mild cerebral volume loss. Atherosclerosis. CEREBELLUM: No masses. No hemorrhage. No alteration of density. No evidence for acute infarction. EXTRAAXIAL SPACES: No fluid collections. No masses. ORBITS AND GLOBE: No intra- or extraconal masses. Normal contour of globe without masses. CALVARIUM: No fracture. PARANASAL SINUSES: No fluid or mucosal thickening. SOFT TISSUES: No mass or hematoma. OTHER: No other significant finding. IMPRESSION: NORMAL BRAIN CT WITHOUT CONTRAST. TECHNICAL DOCUMENTATION: JOB ID: [id number] Quality ID # [id number]: Final reports with documentation of one or more dose reduction techniques (e.g., Au tomated exposure control, adjustment of the mA and/or kV according to patient size, use of iterative reconstruction technique) 2010 [employer]- All Rights Reserved
[2016-07-26 07:47] LABS: BAND NEUTROPHILS % (MANUAL) 4 % (3-5); BASOPHILS % (MANUAL) 0 % (0-2); EOSINOPHILS % (MANUAL) 0 % (0-6); LYMPHOCYTES % (MANUAL) 1 % (13-45); TOTAL CELLS COUNTED 100
[2016-07-26 07:49] LABS: ANISOCYTOSIS 1+; POIKILOCYTOSIS SLIGHT; TARGET CELLS 1+
[2016-07-26 07:50] LABS: PLATELET CLUMPS PRESENT
[2016-07-26 08:04] LABS: APPEARANCE,URINE SLIGHTLY-CLOUDY; BILIRUBIN,URINE NEGATIVE (NEGATIVE); GLUCOSE, URINE NEGATIVE (NEGATIVE); KETONES,URINE NEGATIVE (NEGATIVE); LEUKOCYTE ESTERASE,URINE NEGATIVE (NEGATIVE); NITRITE,URINE NEGATIVE (NEGATIVE); PROTEIN,URINE NEGATIVE (NEGATIVE); UROBILINOGEN,URINE NEGATIVE mg/dL (<2.0)
--- NOTE | 2016-07-26 10:19 | RADIOLOGY REPORT (SQ) ---
EXAM DESCRIPTION: CTA CHEST COMPLETED DATE/TIME: 07/26/2016 9:42 am REASON FOR STUDY: hx lung ca COMPARISON: CT scan 09/19/2015, PET-CT 12/30/2015 TECHNIQUE: CT scan of the chest performed using helical scanning technique with dynamic intravenous contrast injection. Images reviewed with lung, soft tissue and bone windows. Reconstructed coronal and sagittal MPR images reviewed. Additional 3 dimensional post-processing performed to develop Maximal Intensity Projection images (WA P). All images stored on PACS. All CT scanners at this facility use dose modulation, iterative reconstruction, and/or weight based d osing when appropriate to reduce radiation dose to as low as reasonably achievable (ALARA). [facility]: Dose Right [facility]: CareDose [facility]: Dose Right [facility]: Teradose 4D [facility]: [employer] CONTRAST TYPE AND DOSE: 39 mL Isovue 370- low osmolar. RENAL FUNCTION: Creatinine 0.75 RADIATION DOSE: 20.93 mGy. LIMITATIONS: None. FINDINGS: LUNGS AND PLEURA: Small right pleural effusion. Small loculated left effusion. Chronic p arenchymal changes in the medial right lung surrounding the hilum consistent with radiation change. Large chest wall mass on the left with associated bony destruction. If anything this appears slightl y worse. Severe volume loss on the left with abnormal parenchymal density which appears worse. Acti ve malignancy may be present in the left lung. AORTA AND GREAT VESSELS: No aneurysm or dissection. HEART: No pericardial effusion. PULMONARY ARTERIES: No emboli visualized in the main pulmonary arteries or the segmental branches. HILAR AND MEDIASTINAL STRUCTURES: Abnormal soft tissue in the posterior mediastinum surrounding the e sophagus which appears worse than on the prior study. This is presumably related to malignancy. HARDWARE: Right-sided Port-A-Cath. UPPER ABDOMEN: Multiple metastatic foci in the liver. 8 mm enhancing mass in the posterior aspect le ft kidney which may represent metastatic foci. Edema involving the posterolateral abdominal wall and left lateral chest wall more extensive than on the prior study. This could be related to extension of malignancy. THYROID AND OTHER SOFT TISSUES: No masses. No adenopathy. BONES: Multiple thoracic compression fractures 1 of which in the mid thoracic spine is now all sclero tic which could either be related to healing or bony metastatic focus. Relatively stable bony change s involving multiple left ribs, the left scapula and sternum consistent with malignancy either direct invasion or metastatic disease. 3D MIPS: Confirm above findings. OTHER: No other significant finding. IMPRESSION: 1. No evidence of pulmonary embolus. 2. Worsening malignancy with multiple metastatic foci not seen in the liver. The may also be a left renal metastasis. PET CT should be considered to more fully define the extent of disease. TECHNICAL DOCUMENTATION: JOB ID: [id number] Quality ID # [id number]: Final reports with documentation of one or more dose reduction techniques (e.g., Au tomated exposure control, adjustment of the mA and/or kV according to patient size, use of iterative reconstruction technique) 2010 [employer]- All Rights Reserved
--- NOTE | 2016-07-26 10:55 | XCELERA REPORT ---
[address] [address] Upper Extremity Venous Evaluation Name: SACHI GREENE Age: 86 yrs Gender: Female : 1930 Patient Status: Emergency Patient Location: ER Study Date: 07/26/2016 08:09 AM Procedure: Unilateral duplex scan of the left upper extremity veins was performed, including responses to compression and other maneuvers. Reason For Study: L arm swelling x 1 month since IV placement Ordering Physician: PALLAVI DARNELL Performed By: Patrizia Caal Left Sided Venous Evaluation Color flow duplex imaging shows all veins to be compressible with wall-to- wall color filling. Pulsatile and phasic flow is present within all left upper extremity deep and superficial veins examined. Critical Findings Called in to Dr Baker at about 1000. Interpretation Summary Normal compression, patency, spontaneous and phasic flow of the left upper extremity veins. : PALLAVI DARNELL > Dale Toscano
[2016-07-26] MEDS ORDERED: ACETAMINOPHEN 325 MG TABLET PO PRN (11:22)
[2016-07-26] MEDS ORDERED: ONDANSETRON HCL INJ/PF 4 MG/2 ML SDV IV PRN (11:22)
[2016-07-26] MEDS ORDERED: ALPRAZOLAM 0.25 MG TABLET PO PRN (11:32)
--- NOTE | 2016-07-26 11:54 | PDOC H&P ---
History of Present Illness Admission Date/PCP: 07/26/16 10:54 SEFERINO FOX MD Patient complains of: Falling and hitting her head. History of Present Illness: SACHI GREENE is a 86 year old female who has a history of lung cancer who presented to the emergency room after having a fall. She reports that she fell in the bathroom and hit her head. She denies any loss of consciousness. Because of this fall she presented to the emergency room and a head CT was done which showed no acute event. The emergency room physician was concerned because she was tachypneic and thought she should be admitted. She did not have an obvious infiltrate on her chest x-ray. She was not hypoxic on her usual level of oxygen. A chest CTA was done and does show her to have left- sided lung cancer. She also has what appears to be multiple liver metastases. When I asked the patient about her being short of breath she reported that she was no more short of breath than usual but she gets very anxious anytime someone comes into the room and she becomes tachypneic because of that. Patient denies having any cough. She denies any wheezing. She denies any orthopnea or PND. Past Medical History Cardiac Medical History: Reports: Coronary Artery Disease, Myocardial Infarction , Hyperlipidema Denies: Hypertension Pulmonary Medical History: Reports: Chronic Obstructive Pulmonary Disease (COPD) , Pneumonia - A CHILD Denies: Asthma, Bronchitis Neurological Medical History: Denies: Seizures Endocrine Medical History: Reports: None Renal/ Medical History: Reports: None Malignancy Medical History: Reports: Lung Cancer GI Medical History: Denies: Hiatal Hernia Musculoskeltal Medical History: Reports: Arthritis Skin Medical History: Reports: None Psychiatric Medical History: Reports: None Hematology: Denies: Anemia, Sickle Cell Disease Infectious Medical History: Reports: None Past Surgical History Past Surgical History: Reports: Hysterectomy Social History Information Source: Patient Lives with: Family Smoking Status: Former Smoker - Smoking for 20 years. Frequency of Alcohol Use: None Hx Recreational Drug Use: No Drugs: None Hx Prescription Drug Abuse: No - Advance Directive Resuscitation Status: Do Not Resuscitate Surrogate healthcare decision maker:: Her son Tony Family History Family History: COPD, Hypertension Family History: at age 73 with lymphoma. Father age 78 with cirrhosis. Parental Family History Reviewed: Yes Children Family History Reviewed: No Sibling(s) Family History Reviewed.: No Medication/Allergy Home Medications: Alprazolam [Xanax 0.25 mg Tablet] 0.25 mg PO DAILYP PRN 07/26/16 Furosemide [Lasix 20 mg Tablet] 20 mg PO DAILY 07/26/16 Methotrexate Sodium [Methotrexate] 2.5 mg PO OVIEDO@1000 07/26/16 Metoprolol Succinate [Toprol Xl 50 mg Tab.sr] 50 mg PO DAILY 07/26/16 Prednisolone Acetate [Inflamase 1% Oph Susp 5 ml] 1 drop OS DAILY 07/26/16 Allergies/Adverse Reactions: No Known Allergies Allergy (Verified 10/12/13 15:11) Review of Systems Constitutional: PRESENT: weight loss. ABSENT: chills, fever(s), headache(s) Cardiovascular: ABSENT: chest pain, edema, orthropnea, palpitations Respiratory: PRESENT: dyspnea - Chronically wears oxygen.. ABSENT: cough, hemoptysis Gastrointestinal: ABSENT: abdominal pain, constipation, diarrhea, hematemesis, hematochezia, nausea, vomiting Genitourinary: ABSENT: dysuria, hematuria Musculoskeletal: ABSENT: joint swelling Integumentary: ABSENT: rash, wounds Neurological: ABSENT: abnormal gait, abnormal speech, confusion, dizziness, focal weakness, syncope Psychiatric: PRESENT: anxiety. ABSENT: depression Endocrine: ABSENT: cold intolerance, heat intolerance, polydipsia, polyuria Hematologic/Lymphatic: ABSENT: easy bleeding, easy bruising Physical Exam Vital Signs: Temp Pulse Resp BP Pulse Ox 97.8 F 106 H 32 H 149/131 H 98 07/26/16 02:37 07/26/16 02:37 07/26/16 11:13 07/26/16 07:51 07/26/16 11:13 General appearance: PRESENT: no acute distress Head exam: PRESENT: atraumatic, normocephalic Eye exam: PRESENT: conjunctiva pink, EOMI, PERRLA. ABSENT: scleral icterus Ear exam: PRESENT: normal external ear exam Mouth exam: PRESENT: moist, tongue midline Neck exam: ABSENT: carotid bruit, JVD, lymphadenopathy, thyromegaly Respiratory exam: PRESENT: decreased breath sounds - Decreased breath sounds in the bases. ABSENT: rales, rhonchi, wheezes Cardiovascular exam: PRESENT: RRR. ABSENT: diastolic murmur, rubs, systolic murmur Vascular exam: PRESENT: normal capillary refill GI/Abdominal exam: PRESENT: normal bowel sounds, soft. ABSENT: distended, guarding, mass, organolmegaly, rebound, tenderness Extremities exam: ABSENT: calf tenderness, clubbing, pedal edema Neurological exam: PRESENT: alert, awake, oriented to person, oriented to place , oriented to time, oriented to situation, CN II-XII grossly intact. ABSENT: motor sensory deficit Psychiatric exam: PRESENT: anxious Skin exam: PRESENT: dry, intact, warm. ABSENT: cyanosis, rash Results Impressions: Chest X-Ray 07/26/16 05:09 IMPRESSION: No acute cardiopulmonary findings. Chronic abnormalities of the left hemithorax and right hilum consistent with prior history of malignancy. Head CT 07/26/16 05:09 IMPRESSION: NORMAL BRAIN CT WITHOUT CONTRAST. Chest/Abdomen CTA 07/26/16 08:21 IMPRESSION: 1. No evidence of pulmonary embolus. 2. Worsening malignancy with multiple metastatic foci not seen in the liver. The may also be a left renal metastasis. PET CT should be considered to more fully define the extent of disease. Assessment & Plan - Diagnosis (1) Syncope, near Is this a current diagnosis for this admission?: YesPlan: Patient did not have loss of consciousness. The patient denies any palpitations. Will monitor on telemetry to make certain that she has not had any cardiac arrhythmias as the cause for this. (2) Accidental fall Qualifiers: Encounter type: initial encounter Qualified Code(s): W19.XXXA - Unspecified fall, initial encounter Is this a current diagnosis for this admission?: YesPlan: slipped and fell in the bathroom. Head CT is unremarkable. (3) Metastatic lung carcinoma Qualifiers: Laterality: unspecified laterality Qualified Code(s): C78.00 - Secondary malignant neoplasm of unspecified lung Is this a current diagnosis for this admission?: YesPlan: Had a chest CTA and was found to have liver metastases. (4) Anemia Qualifiers: Anemia type: unspecified type Qualified Code(s): D64.9 - Anemia, unspecified Is this a current diagnosis for this admission?: YesPlan: Will monitor her hemoglobin overnight. (5) Essential (primary) hypertension Is this a current diagnosis for this admission?: YesPlan: Blood pressure has fluctuated wildly. Will monitor overnight. - Time Time Spent: 50 to 70 Minutes - Plan Summary Plan Summary: Physician was concerned about the patient's tachypnea. Patient relates that this is all anxiety related. Given her near syncopal episode we will monitor overnight and if she does not have any arrhythmias we will discharge home tomorrow. Given that she has what appears to be new metastases on the CT scan will consult oncology.
[2016-07-26] MEDS ORDERED: ENOXAPARIN SODIUM INJ 30 MG/0.3 ML DISP.SYRIN SUBCUT ONE (13:00)
[2016-07-26] MEDS: IPRATROPIUM/ALBUTEROL 0.5-2.5 MG/3 ML AMPUL NEB SCH ×2 (13:48→19:21)
[2016-07-27] MEDS ORDERED: IPRATROPIUM/ALBUTEROL 0.5-2.5 MG/3 ML AMPUL NEB PRN (06:29)
[2016-07-27 07:20] LABS: HEMATOCRIT 34.1 % (36.0-47.0); HEMOGLOBIN 10.7 g/dL (12.0-15.5); MEAN CORPUSCULAR HEMOGLOBIN 31.1 pg (27.0-33.4); MEAN CORPUSCULAR HGB CONC 31.4 g/dL (32.0-36.0); MEAN CORPUSCULAR VOLUME 99 fl (80-97); RED BLOOD COUNT 3.44 10^6/uL (3.72-5.28); RED CELL DISTRIBUTION WIDTH 18.7 % (11.5-14.0); WHITE BLOOD COUNT 13.1 10^3/uL (4.0-10.5)
[2016-07-27 07:37] LABS: ANION GAP 8 (5-19); BLOOD UREA NITROGEN 22 mg/dL (7-20); CALCIUM 8.6 mg/dL (8.4-10.2); CARBON DIOXIDE 34 mmol/L (22-30); CHLORIDE 100 mmol/L (98-107); CREATININE RESULT 0.65 mg/dL (0.52-1.25); GLUCOSE 110 mg/dL (75-110); POTASSIUM 4.1 mmol/L (3.6-5.0); SODIUM 141.8 mmol/L (137-145)
[2016-07-27] MEDS ORDERED: ENOXAPARIN SODIUM INJ 40 MG/0.4 ML DISP.SYRIN SUBCUT SCH (08:00)
[2016-07-27] MEDS: IPRATROPIUM/ALBUTEROL 0.5-2.5 MG/3 ML AMPUL NEB SCH ×3 (08:40→20:35)
[2016-07-27] MEDS: ENOXAPARIN SODIUM INJ 30 MG/0.3 ML DISP.SYRIN SUBCUT SCH (08:42)
[2016-07-27] MEDS ORDERED: ALPRAZOLAM 0.25 MG TABLET PO PRN (08:46)
[2016-07-27] MEDS: METOPROLOL SUCCINATE 50 MG TAB.SR.24H PO SCH (09:32)
[2016-07-27] MEDS: FUROSEMIDE 20 MG TABLET PO SCH (09:33)
[2016-07-27] MEDS ORDERED: HALOPERIDOL 2 MG TABLET PO SCH ×2 (10:00→13:30)
--- NOTE | 2016-07-27 10:57 | PDOC PROGRESS REPORT ---
Subjective Progress Note for:: 07/27/16 Subjective:: Patient is extremely anxious this morning. I discussed the possibility of hospice with her and she became very agitated and stated she needed more Xanax. Physical Exam Vital Signs: Temp Pulse Resp BP Pulse Ox 98.0 F 128 H 26 H 122/96 H 100 07/27/16 04:23 07/27/16 08:40 07/27/16 08:40 07/27/16 04:23 07/27/16 08:40 Intake & Output 07/26/16 07/27/16 07/28/16 06:59 06:59 06:59 Intake Total 5 Output Total 100 Balance -95 Weight 40.3 kg General appearance: PRESENT: no acute distress Eye exam: PRESENT: conjunctiva pink. ABSENT: scleral icterus Mouth exam: PRESENT: moist, tongue midline Neck exam: ABSENT: carotid bruit, JVD, lymphadenopathy, thyromegaly Respiratory exam: PRESENT: clear to auscultation jerry. ABSENT: rales, rhonchi, wheezes Cardiovascular exam: PRESENT: RRR. ABSENT: diastolic murmur, rubs, systolic murmur GI/Abdominal exam: PRESENT: normal bowel sounds, soft. ABSENT: distended, guarding, mass, organolmegaly, rebound, tenderness Extremities exam: ABSENT: calf tenderness, clubbing, pedal edema Neurological exam: PRESENT: alert, awake, oriented to person, oriented to place , oriented to time, oriented to situation, CN II-XII grossly intact. ABSENT: motor sensory deficit Psychiatric exam: PRESENT: anxious Skin exam: PRESENT: dry, intact, warm. ABSENT: cyanosis, rash Results Laboratory Results: 07/27/16 06:50 07/27/16 06:50 07/27/16 07/27/16 06:50 06:50 WBC 13.1 H RBC 3.44 L Hgb 10.7 L Hct 34.1 L MCV 99 H MCH 31.1 MCHC 31.4 L RDW 18.7 H Plt Count 126 L Sodium 141.8 Potassium 4.1 Chloride 100 Carbon Dioxide 34 H Anion Gap 8 BUN 22 H Creatinine 0.65 Est GFR ( Amer) > 60 Est GFR (Non-Af Amer) > 60 Glucose 110 Calcium 8.6 Impressions: Chest X-Ray 07/26/16 05:09 IMPRESSION: No acute cardiopulmonary findings. Chronic abnormalities of the left hemithorax and right hilum consistent with prior history of malignancy. Head CT 07/26/16 05:09 IMPRESSION: NORMAL BRAIN CT WITHOUT CONTRAST. Chest/Abdomen CTA 07/26/16 08:21 IMPRESSION: 1. No evidence of pulmonary embolus. 2. Worsening malignancy with multiple metastatic foci not seen in the liver. The may also be a left renal metastasis. PET CT should be considered to more fully define the extent of disease. Assessment & Plan - Diagnosis (1) Syncope, near Is this a current diagnosis for this admission?: YesPlan: Patient did not have loss of consciousness. The patient denies any palpitations. Has not had any cardiac arrhythmias to explain her near syncope. (2) Accidental fall Qualifiers: Encounter type: initial encounter Qualified Code(s): W19.XXXA - Unspecified fall, initial encounter Is this a current diagnosis for this admission?: YesPlan: slipped and fell in the bathroom. Head CT is unremarkable. (3) Metastatic lung carcinoma Qualifiers: Laterality: unspecified laterality Qualified Code(s): C78.00 - Secondary malignant neoplasm of unspecified lung Is this a current diagnosis for this admission?: YesPlan: Had a chest CTA and was found to have liver metastases. I discussed the possibility of hospice care with her. Her son that she lives with talked to nursing staff last night about hospice. Patient is very anxious and is adamant that she does not want hospice care. She is scheduled to see her oncologist on Saturday at 2 PM. Family will stop by today and we can have a discussion as to our plan. Patient is very frail and difficulty in caring for herself properly. (4) Anemia Qualifiers: Anemia type: unspecified type Qualified Code(s): D64.9 - Anemia, unspecified Is this a current diagnosis for this admission?: YesPlan: Will monitor her hemoglobin overnight. (5) Essential (primary) hypertension Is this a current diagnosis for this admission?: YesPlan: Blood pressure has fluctuated wildly. Will monitor overnight. (6) Anxiety Is this a current diagnosis for this admission?: YesPlan: Patient is very anxious and we will increase her Xanax and add on Haldol. - Time Time Spent with patient: 25-34 minutes - Plan Summary Plan Summary: Patient was admitted as observation. Will discuss with her children today whether or not for her to go with hospice or whether they will take her home.
[2016-07-27] MEDS: PREDNISOLONE ACETATE 1% OPH SUSP 5 ML OS SCH (11:27)
[2016-07-27] MEDS ORDERED: TUBERCULIN,PURIF.PROT.DERIV. 5 TU/0.1 ML TEST 1 ML VIAL ID ONE (15:00)
[2016-07-27] MEDS: HALOPERIDOL 1 MG TABLET PO SCH (21:20)
[2016-07-28] MEDS: ENOXAPARIN SODIUM INJ 30 MG/0.3 ML DISP.SYRIN SUBCUT SCH (08:05)
[2016-07-28] MEDS: IPRATROPIUM/ALBUTEROL 0.5-2.5 MG/3 ML AMPUL NEB SCH ×3 (08:47→19:59)
[2016-07-28] MEDS: FUROSEMIDE 20 MG TABLET PO SCH (10:00)
[2016-07-28] MEDS: HALOPERIDOL 1 MG TABLET PO SCH ×2 (10:07→21:32)
[2016-07-28] MEDS: PREDNISOLONE ACETATE 1% OPH SUSP 5 ML OS SCH (10:07)
[2016-07-28] MEDS: METOPROLOL SUCCINATE 50 MG TAB.SR.24H PO SCH (10:07)
--- NOTE | 2016-07-28 10:42 | PDOC PROGRESS REPORT ---
Subjective Progress Note for:: 07/28/16 Subjective:: Patient is more calm getting Haldol. She is alert and oriented denies any complaints. Physical Exam Vital Signs: Temp Pulse Resp BP Pulse Ox 97.5 F 114 H 18 101/48 L 97 07/28/16 07:48 07/28/16 08:47 07/28/16 08:47 07/28/16 07:48 07/28/16 08:47 Intake & Output 07/27/16 07/28/16 07/29/16 06:59 06:59 06:59 Intake Total 5 567 Output Total 100 Balance -95 567 Weight 40.3 kg 40.9 kg General appearance: PRESENT: no acute distress Eye exam: PRESENT: conjunctiva pink. ABSENT: scleral icterus Mouth exam: PRESENT: moist, tongue midline Neck exam: ABSENT: JVD Respiratory exam: PRESENT: clear to auscultation jerry. ABSENT: rales, rhonchi, wheezes Cardiovascular exam: PRESENT: RRR, systolic murmur. ABSENT: diastolic murmur, rubs GI/Abdominal exam: PRESENT: normal bowel sounds, soft. ABSENT: distended, guarding, mass, organolmegaly, rebound, tenderness Extremities exam: ABSENT: calf tenderness, clubbing, pedal edema Neurological exam: PRESENT: alert, awake, oriented to person, oriented to place , oriented to time, oriented to situation, CN II-XII grossly intact. ABSENT: motor sensory deficit Psychiatric exam: PRESENT: appropriate affect Skin exam: PRESENT: dry, intact, warm. ABSENT: cyanosis, rash Results Laboratory Results: 07/27/16 06:50 07/27/16 06:50 Impressions: Chest X-Ray 07/26/16 05:09 IMPRESSION: No acute cardiopulmonary findings. Chronic abnormalities of the left hemithorax and right hilum consistent with prior history of malignancy. Head CT 07/26/16 05:09 IMPRESSION: NORMAL BRAIN CT WITHOUT CONTRAST. Chest/Abdomen CTA 07/26/16 08:21 IMPRESSION: 1. No evidence of pulmonary embolus. 2. Worsening malignancy with multiple metastatic foci not seen in the liver. The may also be a left renal metastasis. PET CT should be considered to more fully define the extent of disease. Assessment & Plan - Diagnosis (1) Syncope, near Is this a current diagnosis for this admission?: YesPlan: Patient did not have loss of consciousness. The patient denies any palpitations. Has not had any cardiac arrhythmias to explain her near syncope. (2) Accidental fall Qualifiers: Encounter type: initial encounter Qualified Code(s): W19.XXXA - Unspecified fall, initial encounter Is this a current diagnosis for this admission?: YesPlan: slipped and fell in the bathroom. Head CT is unremarkable. (3) Metastatic lung carcinoma Qualifiers: Laterality: unspecified laterality Qualified Code(s): C78.00 - Secondary malignant neoplasm of unspecified lung Is this a current diagnosis for this admission?: YesPlan: Had a chest CTA and was found to have liver metastases. Patient and her 2 sons have agreed that she will go to assisted living with hospice. Given that it is a holiday weekend we will plan on discharging her to [facility] on Saturday. She is unable to care for herself but yet does not meet inpatient criteria. (4) Anemia Qualifiers: Anemia type: unspecified type Qualified Code(s): D64.9 - Anemia, unspecified Is this a current diagnosis for this admission?: YesPlan: Stable (5) Essential (primary) hypertension Is this a current diagnosis for this admission?: YesPlan: Stable (6) Anxiety Is this a current diagnosis for this admission?: YesPlan: Patient is improved with the Haldol - Time Time Spent with patient: 25-34 minutes - Plan Summary Plan Summary: Is awaiting to go to assisted living at [facility] on Saturday.
[2016-07-28] MEDS ORDERED: GLYCERIN (ADULT) SUPP.RECT PR PRN (18:23)
[2016-07-29] MEDS: IPRATROPIUM/ALBUTEROL 0.5-2.5 MG/3 ML AMPUL NEB SCH ×3 (09:07→19:57)
[2016-07-29] MEDS ORDERED: METHOTREXATE SODIUM 2.5 MG TABLET PO SCH (10:00)
[2016-07-29] MEDS: PREDNISOLONE ACETATE 1% OPH SUSP 5 ML OS SCH (10:54)
[2016-07-29] MEDS: HALOPERIDOL 1 MG TABLET PO SCH ×2 (10:54→23:59)
[2016-07-29] MEDS: METOPROLOL SUCCINATE 50 MG TAB.SR.24H PO SCH (10:55)
[2016-07-29] MEDS: FUROSEMIDE 20 MG TABLET PO SCH (11:15)
--- NOTE | 2016-07-29 12:18 | PDOC PROGRESS REPORT ---
Subjective Progress Note for:: 07/29/16 Subjective:: She is alert and oriented denies any complaints. Physical Exam Vital Signs: Temp Pulse Resp BP Pulse Ox 98.4 F 78 18 164/92 H 96 07/29/16 08:19 07/29/16 09:07 07/29/16 09:07 07/29/16 08:19 07/29/16 09:07 Intake & Output 07/28/16 07/29/16 07/30/16 06:59 06:59 06:59 Intake Total 567 592 Output Total 200 Balance 567 392 Weight 40.9 kg 45 kg General appearance: PRESENT: no acute distress Eye exam: PRESENT: conjunctiva pink. ABSENT: scleral icterus Mouth exam: PRESENT: moist, tongue midline Neck exam: ABSENT: JVD Respiratory exam: PRESENT: clear to auscultation jerry. ABSENT: rales, rhonchi, wheezes Cardiovascular exam: PRESENT: RRR, systolic murmur. ABSENT: diastolic murmur, rubs GI/Abdominal exam: PRESENT: normal bowel sounds, soft. ABSENT: distended, guarding, mass, organolmegaly, rebound, tenderness Extremities exam: ABSENT: calf tenderness, clubbing, pedal edema Neurological exam: PRESENT: alert, awake, oriented to person, oriented to place , oriented to time, oriented to situation, CN II-XII grossly intact. ABSENT: motor sensory deficit Psychiatric exam: PRESENT: appropriate affect Skin exam: PRESENT: dry, intact, warm. ABSENT: cyanosis, rash Results Laboratory Results: 07/27/16 06:50 07/27/16 06:50 Impressions: Chest X-Ray 07/26/16 05:09 IMPRESSION: No acute cardiopulmonary findings. Chronic abnormalities of the left hemithorax and right hilum consistent with prior history of malignancy. Head CT 07/26/16 05:09 IMPRESSION: NORMAL BRAIN CT WITHOUT CONTRAST. Chest/Abdomen CTA 07/26/16 08:21 IMPRESSION: 1. No evidence of pulmonary embolus. 2. Worsening malignancy with multiple metastatic foci not seen in the liver. The may also be a left renal metastasis. PET CT should be considered to more fully define the extent of disease. Assessment & Plan - Diagnosis (1) Syncope, near Is this a current diagnosis for this admission?: YesPlan: Stable, no further episodes. (2) Accidental fall Qualifiers: Encounter type: initial encounter Qualified Code(s): W19.XXXA - Unspecified fall, initial encounter Is this a current diagnosis for this admission?: YesPlan: slipped and fell in the bathroom. Head CT is unremarkable. (3) Metastatic lung carcinoma Qualifiers: Laterality: unspecified laterality Qualified Code(s): C78.00 - Secondary malignant neoplasm of unspecified lung Is this a current diagnosis for this admission?: YesPlan: Had a chest CTA and was found to have liver metastases. Patient and her 2 sons have agreed that she will go to assisted living with hospice. Given that it is a holiday weekend we will plan on discharging her to [facility] on Saturday. She is unable to care for herself but yet does not meet inpatient criteria. (4) Anemia Qualifiers: Anemia type: unspecified type Qualified Code(s): D64.9 - Anemia, unspecified Is this a current diagnosis for this admission?: YesPlan: Stable (5) Essential (primary) hypertension Is this a current diagnosis for this admission?: YesPlan: Stable (6) Anxiety Is this a current diagnosis for this admission?: YesPlan: Patient is improved with the Haldol - Time Time Spent with patient: 25-34 minutes - Plan Summary Plan Summary: will go to assisted living on Saturday
[2016-07-30] MEDS: IPRATROPIUM/ALBUTEROL 0.5-2.5 MG/3 ML AMPUL NEB SCH ×3 (08:19→20:23)
--- NOTE | 2016-07-30 10:06 | PDOC PROGRESS REPORT ---
Subjective Progress Note for:: 07/30/16 Subjective:: She is alert and oriented denies any complaints. Physical Exam Vital Signs: Temp Pulse Resp BP Pulse Ox 98.0 F 99 20 138/69 H 99 07/30/16 08:04 07/30/16 08:20 07/30/16 08:20 07/30/16 08:04 07/30/16 08:20 Intake & Output 07/29/16 07/30/16 07/31/16 06:59 06:59 06:59 Intake Total 592 975 Output Total 200 0 Balance 392 975 Weight 45 kg 45.5 kg General appearance: PRESENT: no acute distress Eye exam: PRESENT: conjunctiva pink. ABSENT: scleral icterus Mouth exam: PRESENT: moist, tongue midline Neck exam: ABSENT: carotid bruit, JVD, lymphadenopathy, thyromegaly Respiratory exam: PRESENT: clear to auscultation jerry. ABSENT: rales, rhonchi, wheezes Cardiovascular exam: PRESENT: RRR. ABSENT: diastolic murmur, rubs, systolic murmur GI/Abdominal exam: PRESENT: normal bowel sounds, soft. ABSENT: distended, guarding, mass, organolmegaly, rebound, tenderness Extremities exam: ABSENT: calf tenderness, clubbing, pedal edema Neurological exam: PRESENT: alert, awake, oriented to person, oriented to place , oriented to time, oriented to situation, CN II-XII grossly intact. ABSENT: motor sensory deficit Psychiatric exam: PRESENT: appropriate affect Skin exam: PRESENT: dry, intact, warm. ABSENT: cyanosis, rash Results Laboratory Results: 07/27/16 06:50 07/27/16 06:50 Impressions: Chest X-Ray 07/26/16 05:09 IMPRESSION: No acute cardiopulmonary findings. Chronic abnormalities of the left hemithorax and right hilum consistent with prior history of malignancy. Head CT 07/26/16 05:09 IMPRESSION: NORMAL BRAIN CT WITHOUT CONTRAST. Chest/Abdomen CTA 07/26/16 08:21 IMPRESSION: 1. No evidence of pulmonary embolus. 2. Worsening malignancy with multiple metastatic foci not seen in the liver. The may also be a left renal metastasis. PET CT should be considered to more fully define the extent of disease. Assessment & Plan - Diagnosis (1) Syncope, near Is this a current diagnosis for this admission?: YesPlan: Stable, no further episodes. (2) Accidental fall Qualifiers: Encounter type: initial encounter Qualified Code(s): W19.XXXA - Unspecified fall, initial encounter Is this a current diagnosis for this admission?: YesPlan: slipped and fell in the bathroom. Head CT is unremarkable. (3) Metastatic lung carcinoma Qualifiers: Laterality: unspecified laterality Qualified Code(s): C78.00 - Secondary malignant neoplasm of unspecified lung Is this a current diagnosis for this admission?: YesPlan: Had a chest CTA and was found to have liver metastases. Patient and her 2 sons have agreed that she will go to assisted living with hospice. Given that it is a holiday weekend we will plan on discharging her to [facility] on Saturday. She is unable to care for herself but yet does not meet inpatient criteria. (4) Anemia Qualifiers: Anemia type: unspecified type Qualified Code(s): D64.9 - Anemia, unspecified Is this a current diagnosis for this admission?: YesPlan: Stable (5) Essential (primary) hypertension Is this a current diagnosis for this admission?: YesPlan: Stable (6) Anxiety Is this a current diagnosis for this admission?: YesPlan: Patient is improved with the Haldol - Time Time Spent with patient: 15-24 minutes - Plan Summary Plan Summary: We will plan on discharge to assisted living tomorrow morning.
[2016-07-30] MEDS: FUROSEMIDE 20 MG TABLET PO SCH (10:29)
[2016-07-30] MEDS: METOPROLOL SUCCINATE 50 MG TAB.SR.24H PO SCH (10:30)
[2016-07-30] MEDS: PREDNISOLONE ACETATE 1% OPH SUSP 5 ML OS SCH (10:33)
[2016-07-30] MEDS: HALOPERIDOL 1 MG TABLET PO SCH ×2 (10:33→21:02)
--- NOTE | 2016-07-30 12:14 | PDOC TRANSFER SUMMARY ---
General - Admit/Disc Date/PCP Admission Date/Primary Care Provider: 07/26/16 11:22 ESFERINO FOX MD Discharge Date: 07/31/16 - Discharge Diagnosis (1) Syncope, near Is this a current diagnosis for this admission?: Yes (2) Accidental fall Is this a current diagnosis for this admission?: Yes (3) Metastatic lung carcinoma Is this a current diagnosis for this admission?: Yes (4) Anemia Is this a current diagnosis for this admission?: Yes (5) Essential (primary) hypertension Is this a current diagnosis for this admission?: Yes (6) Anxiety Is this a current diagnosis for this admission?: Yes - Additional Information Resuscitation Status: Full Code Discharge Diet: Regular Discharge Activity: Activity As Tolerated Home Medications: Furosemide [Lasix 20 mg Tablet] 20 mg PO DAILY 07/26/16 Methotrexate Sodium [Methotrexate] 2.5 mg PO OVIEDO@1000 07/26/16 Metoprolol Succinate [Toprol Xl 50 mg Tab.sr] 50 mg PO DAILY 07/26/16 Prednisolone Acetate [Inflamase 1% Oph Susp 5 ml] 1 drop OS DAILY 07/26/16 Alprazolam [Xanax 0.25 mg Tablet] 0.25 mg PO DAILYP PRN #30 tablet 07/30/16 Haloperidol [Haldol 1 mg Tablet] 1 mg PO Q12 #60 tablet 07/30/16 History of Present Illness Admission Date/PCP: 07/26/16 11:22 SEFERINO FOX MD History of Present Illness: SACHI GREENE is a 86 year old female who has a history of lung cancer who presented to the emergency room after having a fall. She reports that she fell in the bathroom and hit her head. She denies any loss of consciousness. Because of this fall she presented to the emergency room and a head CT was done which showed no acute event. The emergency room physician was concerned because she was tachypneic and thought she should be admitted. She did not have an obvious infiltrate on her chest x-ray. She was not hypoxic on her usual level of oxygen. A chest CTA was done and does show her to have left- sided lung cancer. She also has what appears to be multiple liver metastases. When I asked the patient about her being short of breath she reported that she was no more short of breath than usual but she gets very anxious anytime someone comes into the room and she becomes tachypneic because of that. Patient denies having any cough. She denies any wheezing. She denies any orthopnea or PND. Hospital Course Hospital Course: 6-year-old female who presented after having a near syncopal episode. The patient was found to have metastatic lung cancer when a CTA was done to evaluate for pulmonary emboli. The patient is very frail and she and her children have opted for hospice care instead of any type of treatment. Patient will be going to [facility] assisted living as she is unable to care for herself anymore. Physical Exam Vital Signs: Temp Pulse Resp BP Pulse Ox 98.0 F 99 20 138/69 H 99 07/30/16 08:04 07/30/16 08:20 07/30/16 08:20 07/30/16 08:04 07/30/16 08:20 Intake & Output 07/29/16 07/30/16 07/31/16 06:59 06:59 06:59 Intake Total 592 975 Output Total 200 0 Balance 392 975 Weight 45 kg 45.5 kg General appearance: PRESENT: no acute distress Eye exam: PRESENT: conjunctiva pink. ABSENT: scleral icterus Mouth exam: PRESENT: moist, tongue midline Neck exam: ABSENT: JVD Respiratory exam: PRESENT: clear to auscultation jerry. ABSENT: rales, rhonchi, wheezes Cardiovascular exam: PRESENT: irregular rhythm, systolic murmur. ABSENT: diastolic murmur, rubs GI/Abdominal exam: PRESENT: normal bowel sounds, soft. ABSENT: distended, guarding, mass, organolmegaly, rebound, tenderness Extremities exam: ABSENT: calf tenderness, clubbing, pedal edema Neurological exam: PRESENT: alert, awake, oriented to person, oriented to place , oriented to time, oriented to situation, CN II-XII grossly intact. ABSENT: motor sensory deficit Psychiatric exam: PRESENT: appropriate affect Skin exam: PRESENT: dry, intact, warm. ABSENT: cyanosis, rash Results Laboratory Results: 07/27/16 06:50 07/27/16 06:50 Impressions: Chest X-Ray 07/26/16 05:09 IMPRESSION: No acute cardiopulmonary findings. Chronic abnormalities of the left hemithorax and right hilum consistent with prior history of malignancy. Head CT 07/26/16 05:09 IMPRESSION: NORMAL BRAIN CT WITHOUT CONTRAST. Chest/Abdomen CTA 07/26/16 08:21 IMPRESSION: 1. No evidence of pulmonary embolus. 2. Worsening malignancy with multiple metastatic foci not seen in the liver. The may also be a left renal metastasis. PET CT should be considered to more fully define the extent of disease. Transfer Plan - Disposition Transfer Plan: Transfer to [facility] assisted living tomorrow with hospice. - Time Spent with Patient Time spent with patient: Greater than 30 Minutes Qualifiers PATEINT BEING DISCHARGED WITH ANY OF THE FOLLOWING DIAGNOSIS?: No Plan Discharge Plan: Refer to [facility] assisted living tomorrow morning with hospice. Time Spent: Greater than 30 Minutes
[2016-07-30] MEDS: ONDANSETRON 4 MG TAB.RAPDIS PO PRN (13:51)
[2016-07-30] MEDS ORDERED: ONDANSETRON HCL INJ/PF 4 MG/2 ML SDV IV PRN (14:47)
[2016-07-31] MEDS: IPRATROPIUM/ALBUTEROL 0.5-2.5 MG/3 ML AMPUL NEB SCH ×2 (07:29→14:06)
[2016-07-31] MEDS: ONDANSETRON 4 MG TAB.RAPDIS PO PRN (07:47)
--- NOTE | 2016-07-31 08:42 | PDOC PROGRESS REPORT ---
Subjective Progress Note for:: 07/31/16 Subjective:: The patient denies any shortness of breath chills nor fever nor any pain or discomfort at this time. Denies any diarrhea as well. Denies any dizziness. Her shortness of breath is more on exertion. She is chronically on oxygen at home. She has a living will and she stated she paid a lot of money for her living will. She stated that she did not want to be resuscitated and does not want to be on a ventilator nor any chest compression. Physical Exam Vital Signs: Temp Pulse Resp BP Pulse Ox 98.0 F 104 H 22 H 113/57 L 94 07/31/16 03:21 07/31/16 07:31 07/31/16 07:31 07/31/16 03:21 07/31/16 07:31 Intake & Output 07/30/16 07/31/16 08/01/16 06:59 06:59 06:59 Intake Total 975 475 Output Total 0 0 Balance 975 475 Weight 45.5 kg 45.6 kg General appearance: PRESENT: no acute distress, thin Head exam: PRESENT: normocephalic Eye exam: PRESENT: EOMI Mouth exam: PRESENT: moist, neck supple Neck exam: ABSENT: JVD Respiratory exam: PRESENT: clear to auscultation jerry Cardiovascular exam: PRESENT: RRR. ABSENT: gallop GI/Abdominal exam: PRESENT: soft. ABSENT: distended, tenderness Extremities exam: ABSENT: pedal edema Neurological exam: PRESENT: alert, awake, oriented to situation Psychiatric exam: ABSENT: agitated Focused psych exam: ABSENT: restlessness Skin exam: PRESENT: dry, warm. ABSENT: cyanosis Results Laboratory Results: 07/27/16 06:50 07/27/16 06:50 Impressions: Chest X-Ray 07/26/16 05:09 IMPRESSION: No acute cardiopulmonary findings. Chronic abnormalities of the left hemithorax and right hilum consistent with prior history of malignancy. Head CT 07/26/16 05:09 IMPRESSION: NORMAL BRAIN CT WITHOUT CONTRAST. Chest/Abdomen CTA 07/26/16 08:21 IMPRESSION: 1. No evidence of pulmonary embolus. 2. Worsening malignancy with multiple metastatic foci not seen in the liver. The may also be a left renal metastasis. PET CT should be considered to more fully define the extent of disease. Assessment & Plan - Diagnosis (1) Syncope, near Is this a current diagnosis for this admission?: Yes (2) Accidental fall Qualifiers: Encounter type: initial encounter Qualified Code(s): W19.XXXA - Unspecified fall, initial encounter Is this a current diagnosis for this admission?: Yes (3) Metastatic lung carcinoma Qualifiers: Laterality: unspecified laterality Qualified Code(s): C78.00 - Secondary malignant neoplasm of unspecified lung Is this a current diagnosis for this admission?: Yes (4) Anxiety Is this a current diagnosis for this admission?: Yes (5) Anemia Qualifiers: Anemia type: unspecified type Qualified Code(s): D64.9 - Anemia, unspecified Is this a current diagnosis for this admission?: Yes (6) Essential (primary) hypertension Is this a current diagnosis for this admission?: Yes (7) COPD (chronic obstructive pulmonary disease) Qualifiers: COPD type: chronic bronchitis Is this a current diagnosis for this admission?: Yes - Time Time Spent with patient: 25-34 minutes - Plan Summary Plan Summary: Patient is a DNR, we will follow her wishes. She has been arranged to be D/C to assisted living with hospice.
[2016-07-31] MEDS: METOPROLOL SUCCINATE 50 MG TAB.SR.24H PO SCH (09:34)
[2016-07-31] MEDS: FUROSEMIDE 20 MG TABLET PO SCH (09:34)
[2016-07-31] MEDS: PREDNISOLONE ACETATE 1% OPH SUSP 5 ML OS SCH (09:35)
[2016-07-31] MEDS: HALOPERIDOL 1 MG TABLET PO SCH (09:35)
[2016-07-31] MEDS ORDERED: LORAZEPAM INJ 2 MG/1 ML VIAL IV PRN (10:26)
[2016-07-31 16:43] VITALS: BP 122/84
== END 2016-07-31 18:14 | disposition home health service (06) ==
LOC: ER 02:29 → UNDOADMIN 10:54 → EH 10:54 → INTOOBSV 11:22 → EH 11:22 → 3S 14:43
PROVIDERS: ADMIT Internal Medicine; ATTEND Internal Medicine
DX: R55 Syncope and collapse (principal); W01.0XXA Fall on same level from slipping, tripping and stumbling without subsequent striking against object, initial encounter; D64.9 Anemia, unspecified; C78.00 Secondary malignant neoplasm of unspecified lung; I10 Essential (primary) hypertension; F41.9 Anxiety disorder, unspecified; Z79.899 Other long term (current) drug therapy; R06.82 Tachypnea, not elsewhere classified; R63.4 Abnormal weight loss; M19.90 Unspecified osteoarthritis, unspecified site; R45.1 Restlessness and agitation; M79.89 Other specified soft tissue disorders; R51 Headache; I95.9 Hypotension, unspecified; S00.03XA Contusion of scalp, initial encounter; I25.2 Old myocardial infarction; Z99.81 Dependence on supplemental oxygen; I25.10 Atherosclerotic heart disease of native coronary artery without angina pectoris; Z92.3 Personal history of irradiation; Z87.891 Personal history of nicotine dependence; R29.6 Repeated falls; Z91.81 History of falling; Z82.49 Family history of ischemic heart disease and other diseases of the circulatory system; Z66 Do not resuscitate; Z80.7 Family history of other malignant neoplasms of lymphoid, hematopoietic and related tissues; Z90.710 Acquired absence of both cervix and uterus; Z85.118 Personal history of other malignant neoplasm of bronchus and lung
CPT/HCPCS: 99285; 36415 ×2; 87040; 83540; 83550; 83735; 85025; 85027; 85610; 85730; 80048; 80053; 81001; 84484; 83880; 93971 ×2; 71010; 70450; 71275; 94640 ×7; G0378 ×6; A9270 ×23; J8610; J2060; J3490 ×8; J1650; J7030; J1642 ×4; J7620; S0119